=== PATIENT | male | born 2000 | race African-American/Black ===

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

== ENCOUNTER 2019-05-15 20:11 | Emergency (ER) | payer SELFPAY ==
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
[2019-05-15] MEDS ORDERED: LIDOCAINE 1% MPF 5 ML VIAL ONE (21:13)
[2019-05-15] MEDS ORDERED: BUPIVACAINE 0.5% PF 10 ML VIAL ONE (21:13)
[2019-05-15] MEDS ORDERED: TETANUS & DIPHTHERIA TOX,ADULT 0.5 ML VIAL ONE (21:14)
--- NOTE | 2019-05-15 22:24 | ER ---
Nurse's Notes [facility] Name: Bernarda Finn Age: 19 yrs Sex: Male : 2000 Arrival Date: 05/15/2019 Time: 20:12 Bed 24 Private MD: Diagnosis: Laceration without foreign body of finger without damage to nail-right middle Presentation: 05/14 20:39 Chief complaint: Patient states: "I cut middle finger on my right hand on some glass.". jd3 Coronavirus screen: The patient has NOT traveled to a country currently being monitored by the [facility] within the last 14 days. The patient has NOT had contact with any known and/or suspected case of coronavirus. Proceed with normal triage procedures. Ebola Screen: Patient negative for fever greater than or equal to 101.5 degrees Fahrenheit, and additional compatible Ebola Virus Disease symptoms. Initial Sepsis Screen: Does the patient meet any 2 criteria? No. Patient's initial sepsis screen is negative. Does the patient have a suspected source of infection? No. Patient's initial sepsis screen is negative. Risk Assessment: Do you want to hurt yourself or someone else? Patient reports no desire to harm self or others. 20:39 Method Of Arrival: Ambulatory jd3 20:39 Acuity: ROCK 4 jd3 21:00 Onset of symptoms was May 15, 2019. ll1 Triage Assessment: 20:59 General: Appears in no apparent distress. Behavior is calm, cooperative. ll1 Historical: - Allergies: 20:41 No Known Allergies; jd3 - Home Meds: 20:41 None [Active]; jd3 - PMHx: 20:41 None; jd3 - PSHx: 20:41 None; jd3 - Immunization history:: Adult Immunizations up to date, Last tetanus immunization: < 10 years ago. - Social history:: Smoking status: . Screenin:59 Abuse screen: Denies threats or abuse. Nutritional screening: No deficits noted. ll1 Tuberculosis screening: No symptoms or risk factors identified. Fall Risk None identified. Total Bravo Fall Scale indicates No Risk (0-24 pts). Assessment: 21:00 General: Appears in no apparent distress. Behavior is calm, cooperative. Pain: ll1 Complains of pain in palmar aspect of proximal phalanx of right middle finger Pain currently is 4 out of 10 on a pain scale. Quality of pain is described as aching. Neuro: No deficits noted. Cardiovascular: No deficits noted. Respiratory: No deficits noted. Derm: laceration to right hand 3rd digit. Bleeding controlled. 22:47 Reassessment: Patient is alert, oriented x 3, equal unlabored respirations, skin bb warm/dry/pink. pt verbalized understanding of and agrees to plan of care discharge instructions given, suture line intact, splint in place to right middle finger, bandage clean, dry and intact, pt ambulated with steady gait to exit accompanied by family. Vital Signs: 20:41 BP 134 / 76; Pulse 86; Resp 17 S; Temp 98.4(TE); Pulse Ox 99% on R/A; Weight 72.57 kg jd3 (R); Height 6 ft. 1 in. (185.42 cm) (R); Pain 0/10; 22:38 BP 130 / 95; Pulse 75; Resp 14 S; Temp 98.5; Pulse Ox 100% on R/A; bb 20:41 Body Mass Index 21.11 (72.57 kg, 185.42 cm) jd3 ED Course: 20:12 Patient arrived in ED. cl3 20:40 Triage completed. jd3 20:41 Arm band placed on. jd3 20:58 Dariela Lopez, SARAH is Primary Nurse. ll1 20:59 Patient has correct armband on for positive identification. Bed in low position. Call ll1 light in reach. Side rails up X 1. 21:03 Delfin Hightower PA is PHCP. cp 21:04 Miko Hu MD is Attending Physician. cp 22:40 Wound care: to laceration located on palmar aspect of proximal phalanx of right middle bb finger was cleaned with with normal saline, dressed with 4X4s, Kerlix, finger splint applied. 22:49 No provider procedures requiring assistance completed. Patient did not have IV access bb during this emergency room visit. 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 Exp: ll1 02/02/2021. Lot #: [id number]. } Route: IM; Site: right gluteus; 22:38 Follow up: Response: No adverse reaction bb 21:28 Drug: Lidocaine (1 %) 5 ml {Note: by C. Page.} Volume: 5 ml; Route: Infiltration; ll1 22:46 Follow up: Response: No adverse reaction ll1 21:28 Drug: Marcaine (0.5 %) 5 ml {Note: by C. Page.} Volume: 10 ml; Route: Infiltration; ll1 22:46 Follow up: Response: No adverse reaction ll1 Outcome: 22:24 Discharge ordered by . jairon 22:49 Discharged to home ambulatory, with family. bb 22:49 Condition: stable 22:49 Discharge instructions given to patient, Instructed on discharge instructions, follow up and referral plans. wound care, Demonstrated understanding of instructions, follow-up care, wound care. 22:49 Patient left the ED. bb Signatures: Myriam Goldman RN RN Delfin Elise PA PA cp Davies, Jonathon, RN RN Alvaro Obrien cl3 Dariela Lopez RN RN ll1
--- NOTE | 2019-05-15 22:24 | EDPHYS ---
Physician Documentation [facility] Name: Bernarda Finn Age: 19 yrs Sex: Male : 2000 Arrival Date: 05/15/2019 Time: 20:12 Bed 24 Private MD: ED Physician Miko Hu HPI: 05/14 21:10 This 19 yrs old Black Male presents to ER via Ambulatory with complaints of Laceration cp To Finger. 21:10 The patient or guardian reports a laceration. cp 21:10 Context: resulted from piece of broken glass. Onset: The symptoms/episode cp began/occurred today. Associated signs and symptoms: Pertinent negatives: cyanosis distally, numbness distally. Severity of symptoms: in the emergency department the symptoms are unchanged, despite home interventions. 21:10 The complaints affect the ulna side right middle finger. cp Historical: - Allergies: 20:41 No Known Allergies; jd3 - Home Meds: 20:41 None [Active]; jd3 - PMHx: 20:41 None; jd3 - PSHx: 20:41 None; jd3 - Immunization history:: Adult Immunizations up to date, Last tetanus immunization: < 10 years ago. - Social history:: Smoking status: . ROS: 21:15 Constitutional: Negative for body aches, chills, fever, poor PO intake. cp 21:15 Eyes: Negative for injury, pain, redness, and discharge. cp 21:15 ENT: Negative for drainage from ear(s), ear pain, sore throat, difficulty swallowing, difficulty handling secretions. 21:15 Cardiovascular: Negative for chest pain. 21:15 Respiratory: Negative for cough, wheezing. 21:15 MS/extremity: Positive for laceration, of the ulna side right middle finger, Negative for decreased range of motion, paresthesias. 21:15 All other systems are negative. Exam: 21:25 Constitutional: The patient appears in no acute distress, alert, awake, non-toxic, well cp developed, well nourished. 21:25 Musculoskeletal/extremity: Extremities: grossly normal except: noted in the ulna side cp right middle finger: laceration, There is no evidence of decreased ROM, ROM: full active range of motion, in the right middle finger, Perfusion: the extremity is normally perfused throughout, Sensation intact. Tendon exam: specific tendon testing normal through active and passive range of motion Vital Signs: 20:41 BP 134 / 76; Pulse 86; Resp 17 S; Temp 98.4(TE); Pulse Ox 99% on R/A; Weight 72.57 kg jd3 (R); Height 6 ft. 1 in. (185.42 cm) (R); Pain 0/10; 22:38 BP 130 / 95; Pulse 75; Resp 14 S; Temp 98.5; Pulse Ox 100% on R/A; bb 20:41 Body Mass Index 21.11 (72.57 kg, 185.42 cm) jd3 Laceration: 22:21 Wound Repair of 3cm ( 1.2in ) subcutaneous laceration to ulna side right middle finger. cp Linear shaped.. Distal neuro/vascular/tendon intact. Anesthesia: Digital block administered with 5 mls of Lido/Marcaine. Wound prep: Moderate cleansing by nurse, Wound irrigation with saline by me. Skin closed with 5 4-0 Prolene using simple sutures and sterile technique. Dressed with Bacitracin, non-adherent dressing. Patient tolerated well. MDM: 21:04 Patient medically screened. cp 21:20 Differential diagnosis: open fracture, closed fracture, tendon laceration, simple cp laceration. 22:23 Data reviewed: vital signs, nurses notes, and as a result, I will discharge patient. cp 22:23 Counseling: I had a detailed discussion with the patient and/or guardian regarding: the cp historical points, exam findings, and any diagnostic results supporting the discharge/admit diagnosis, to return to the emergency department if symptoms worsen or persist or if there are any questions or concerns that arise at home. Response to treatment: the patient's symptoms have markedly improved after treatment, and as a result, I will discharge patient. 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 Exp: ll1 02/02/2021. Lot #: [id number]. } Route: IM; Site: right gluteus; 22:38 Follow up: Response: No adverse reaction bb 21:28 Drug: Lidocaine (1 %) 5 ml {Note: by C. Page.} Volume: 5 ml; Route: Infiltration; ll1 22:46 Follow up: Response: No adverse reaction ll1 21:28 Drug: Marcaine (0.5 %) 5 ml {Note: by C. Page.} Volume: 10 ml; Route: Infiltration; ll1 22:46 Follow up: Response: No adverse reaction ll1 Disposition: 22:30 Chart complete. cp 05/15 07:02 Co-signature as Attending Physician, Miko Hu MD I agree with the assessment and tw4 plan of care. Disposition: 05/15/19 22:24 Discharged to Home. Impression: Laceration without foreign body of finger without damage to nail - right middle. - Condition is Stable. - Discharge Instructions: Laceration Care, Adult. - Work release form, Family Work Release, Medication Reconciliation Form, Thank You Letter, Antibiotic Education, Prescription Opioid Use form. - Follow up: Private Physician; When: 10 - 14 days; Reason: Staple/Suture removal. - Problem is new. - Symptoms have improved. Signatures: Myriam Goldman RN RN bb Delfin Hightower PA PA cp Davies, Jonathon RN SARAH jMiko Tanner MD MD tw4 Dariela Lopez RN RN ll1 Corrections: (The following items were deleted from the chart) 05/14 22:21 21:10 The complaints affect the right fourth finger, cp cp 22:49 22:24 05/15/2019 22:24 Discharged to Home. Impression: Laceration without foreign body bb of finger without damage to nail - right middle. Condition is Stable. Forms are Medication Reconciliation Form, Thank You Letter, Antibiotic Education, Prescription Opioid Use. Follow up: Private Physician; When: 10 - 14 days; Reason: Staple/Suture removal. Problem is new. Symptoms have improved. cp
[2019-05-15 23:05] VITALS: BP 130/95; TEMP 98.5; O2SAT 100
== END 2019-05-15 22:49 | disposition home or self-care (01) ==
LOC: ER 20:11
PROC: 0JQJ0ZZ Repair Right Hand Subcutaneous Tissue and Fascia, Open Approach (ICD-10-PCS; principal; 2019-05-15)
DX: S61.212A Laceration without foreign body of right middle finger without damage to nail, initial encounter (principal); W25.XXXA Contact with sharp glass, initial encounter; Y93.9 Activity, unspecified; Y92.9 Unspecified place or not applicable; Z23 Encounter for immunization
CPT/HCPCS: 90471; 90714; 99283

== ENCOUNTER 2019-05-25 | Emergency (ER) | payer SELFPAY ==
--- NOTE | 2019-05-25 11:04 | EDPHYS ---
Physician Documentation [facility] Name: Bernarda Finn Age: 19 yrs Sex: Male : 2000 Arrival Date: 05/25/2019 Time: 10:35 Bed 14 Private MD: ED Physician Rajan Katz HPI: 05/24 10:53 This 19 yrs old Black Male presents to ER via Ambulatory with complaints of Suture cp Removal. 10:53 The patient has sutures on the right middle finger. cp 10:54 Previous treatment: The patient was initially treated 10 day(s) ago, the care was cp rendered at [facility], Treatment type: The patient's original treatment included sutures. Historical: - Allergies: 10:46 No Known Allergies; ph - Home Meds: 10:46 None [Active]; ph - PMHx: 10:46 None; ph - Immunization history:: Adult Immunizations up to date. - Social history:: Smoking status: Patient denies any tobacco usage or history of. ROS: 10:56 Constitutional: Negative for fever. cp 10:56 Skin: Positive for laceration(s), of the right middle finger, Negative for cellulitis. 10:56 Neuro: Negative for numbness. 10:56 All other systems are negative. Exam: 10:56 Head/Face: Normocephalic, atraumatic. cp 10:56 Constitutional: The patient appears in no acute distress, alert, awake, non-toxic, well developed, well nourished. 10:56 Cardiovascular: Rate: normal. 10:56 Respiratory: the patient does not display signs of respiratory distress, Respirations: normal. 10:56 Skin: cellulitis, is not appreciated, Wound recheck: Suture laceration closure: no drainage, no erythema, no swelling, mild dehiscence. Vital Signs: 10:43 BP 129 / 81; Pulse 75; Resp 18; Temp 98.6; Pulse Ox 99% on R/A; Weight 72.57 kg; Height ph 6 ft. 1 in. (185.42 cm); Pain 0/10; 10:43 Body Mass Index 21.11 (72.57 kg, 185.42 cm) ph MDM: 10:42 Patient medically screened. cp 10:59 ED course: VSS. Wound appears to be healing well with no signs of infection, mild cp dehiscence noted. Noted [address], 2 sutures removed by me today and will leave [address] for next 4-5 days and apply splint to extremity. 11:03 Data reviewed: vital signs, nurses notes, and as a result, I will discharge patient. cp 11:03 Counseling: I had a detailed discussion with the patient and/or guardian regarding: the cp historical points, exam findings, and any diagnostic results supporting the discharge/admit diagnosis, to return to the emergency department if symptoms worsen or persist or if there are any questions or concerns that arise at home. Administered Medications: No medications were administered Disposition: 11:15 Chart complete. cp 17:16 Co-signature as Attending Physician, Rajan Ktaz MD Did not see or evaluate patient. ps1 Signature for administrative purposes. . Disposition: 05/25/19 11:03 Discharged to Home. Impression: Encounter for attention to dressings, sutures and drains. - Condition is Stable. - Discharge Instructions: Wound Check, Form - Return To Work. - Medication Reconciliation Form, Thank You Letter, Antibiotic Education, Prescription Opioid Use, Work release form form. - Follow up: Private Physician; When: 4 Days; Reason: Staple/Suture removal. - Problem is new. - Symptoms have improved. Signatures: Jyothi Hernandes RN RN ph Delfin Hightower PA PA cp Sebastian Barnett, SARAH RN Rajan Arvizu MD MD ps1 Corrections: (The following items were deleted from the chart) 11:14 11:03 05/25/2019 11:03 Discharged to Home. Impression: Encounter for attention to bp dressings, sutures and drains. Condition is Stable. Forms are Medication Reconciliation Form, Thank You Letter, Antibiotic Education, Prescription Opioid Use. Follow up: Private Physician; When: 4 Days; Reason: Staple/Suture removal. Problem is new. Symptoms have improved. cp
--- NOTE | 2019-05-25 11:04 | ER ---
Nurse's Notes [facility] Name: Bernarda Finn Age: 19 yrs Sex: Male : 2000 Arrival Date: 05/25/2019 Time: 10:35 Bed 14 Private MD: Diagnosis: Encounter for attention to dressings, sutures and drains Presentation: 05/24 10:43 Chief complaint: Patient states: Had sutures placed to R middle finger approx 10 days ph ago and here for removal, denies redness, swelling, or signs of infection. Coronavirus screen: The patient has NOT traveled to a country currently being monitored by the [facility] within the last 14 days. The patient has NOT had contact with any known and/or suspected case of coronavirus. Ebola Screen: No symptoms or risks identified at this time. Initial Sepsis Screen: Does the patient meet any 2 criteria? No. Patient's initial sepsis screen is negative. Does the patient have a suspected source of infection? No. Patient's initial sepsis screen is negative. Risk Assessment: Do you want to hurt yourself or someone else? Patient reports no desire to harm self or others. 10:43 Method Of Arrival: Ambulatory ph 10:43 Acuity: ROCK 5 ph Triage Assessment: 10:45 General: Appears in no apparent distress. comfortable, Behavior is calm, cooperative, bp appropriate for age. Pain: Denies pain. EENT: No deficits noted. Neuro: No deficits noted. Cardiovascular: No deficits noted. Respiratory: No deficits noted. GI: No signs and/or symptoms were reported involving the gastrointestinal system. : No signs and/or symptoms were reported regarding the genitourinary system. Derm: No deficits noted. Musculoskeletal: No deficits noted. Injury Description: HEALED LACERATION WITH SUTURES. Historical: - Allergies: 10:46 No Known Allergies; ph - Home Meds: 10:46 None [Active]; ph - PMHx: 10:46 None; ph - Immunization history:: Adult Immunizations up to date. - Social history:: Smoking status: Patient denies any tobacco usage or history of. Screenin:47 Abuse screen: Denies threats or abuse. Denies injuries from another. Nutritional ph screening: No deficits noted. Tuberculosis screening: No symptoms or risk factors identified. Fall Risk None identified. Assessment: 10:45 General: SEE TRIAGE NOTE. bp 11:12 Reassessment: PT D/C HOME AMBULATORY WITH FAMILY, DX WITH SUTURE REMOVAL. bp Vital Signs: 10:43 BP 129 / 81; Pulse 75; Resp 18; Temp 98.6; Pulse Ox 99% on R/A; Weight 72.57 kg; Height ph 6 ft. 1 in. (185.42 cm); Pain 0/10; 10:43 Body Mass Index 21.11 (72.57 kg, 185.42 cm) ph ED Course: 10:35 Patient arrived in ED. ag5 10:42 Delfin Hightower PA is PHCP. cp 10:42 Rajan Katz MD is Attending Physician. cp 10:43 Jyothi Hernandes, RN is Primary Nurse. ph 10:44 Triage completed. ph 10:47 Patient has correct armband on for positive identification. Bed in low position. Call ph light in reach. Pulse ox on. NIBP on. 10:47 Arm band placed on Patient placed in an exam room, on a stretcher. ph 10:54 Sebastian Barnett, SARAH is Primary Nurse. bp 10:55 No provider procedures requiring assistance completed. Patient did not have IV access bp during this emergency room visit. Removal of Removed sutures from right middle finger Suture site is well healed Patient tolerated well. Administered Medications: No medications were administered Outcome: 11:03 Discharge ordered by MD. cp 11:12 Discharged to home ambulatory, with family. bp 11:12 Condition: stable 11:12 Discharge instructions given to patient, Instructed on discharge instructions, follow up and referral plans. wound care, Demonstrated understanding of instructions, follow-up care, wound care. 11:14 Patient left the ED. bp Signatures: Jyothi Hernandes, RN RN ph Delfin Hightower PA PA cp Sebastian Barnett, RN RN bp Bessie Huang ag5
== END 2019-05-25 11:14 | disposition home or self-care (01) ==
DX: Z48.02 Encounter for removal of sutures (principal)
CPT/HCPCS: 99283

== ENCOUNTER 2019-05-28 11:54 | Emergency (ER) | payer SELFPAY ==
--- NOTE | 2019-05-28 12:26 | EDPHYS ---
Physician Documentation [facility] Name: Bernarda Finn Age: 19 yrs Sex: Male : 2000 Arrival Date: 05/28/2019 Time: 11:57 Bed 24 Private MD: ED Physician Cheo Haywood HPI: 05/27 12:23 This 19 yrs old Black Male presents to ER via Ambulatory with complaints of Suture snw Removal. 12:23 The patient has sutures on the dorsal aspect of proximal phalanx of right ring finger. snw Previous treatment: The patient was initially treated 14 day(s) ago, Previous recheck: was rechecked on May 25, 2019. Sutures/gloria progress: The patient has no c/o's. The wound is well-healing with no redness, swelling, discharge, or dehiscence reported. The patient has not experienced similar symptoms in the past. on 05/25/19, pt came for suture removal, two sutures were removed and pt told to return today. Healed laceration with [address] Historical: - Allergies: 12:08 No Known Allergies; ca1 - Home Meds: 12:08 None [Active]; ca1 - PMHx: 12:08 None; ca1 - PSHx: 12:08 None; ca1 - Immunization history:: Adult Immunizations up to date, Flu vaccine is up to date. - Social history:: Smoking status: Patient denies any tobacco usage or history of. ROS: 12:21 Constitutional: Negative for fever, chills, and weight loss, Eyes: Negative for injury, snw pain, redness, and discharge, ENT: Negative for injury, pain, and discharge, Neck: Negative for injury, pain, and swelling, Cardiovascular: Negative for chest pain, palpitations, and edema, Respiratory: Negative for shortness of breath, cough, wheezing, and pleuritic chest pain, Abdomen/GI: Negative for abdominal pain, nausea, vomiting, diarrhea, and constipation, Back: Negative for injury and pain, : Negative for injury, bleeding, discharge, and swelling, MS/Extremity: Negative for injury and deformity, Neuro: Negative for headache, weakness, numbness, tingling, and seizure, Psych: Negative for depression, anxiety, suicide ideation, homicidal ideation, and hallucinations. 12:21 Skin: Positive for healed laceration to ring finger, need sutures removed. Exam: 12:21 Constitutional: This is a well developed, well nourished patient who is awake, alert, snw and in no acute distress. Head/Face: Normocephalic, atraumatic. Eyes: Pupils equal round and reactive to light, extra-ocular motions intact. Lids and lashes normal. Conjunctiva and sclera are non-icteric and not injected. Cornea within normal limits. Periorbital areas with no swelling, redness, or edema. ENT: Nares patent. No nasal discharge, no septal abnormalities noted. Tympanic membranes are normal and external auditory canals are clear. Oropharynx with no redness, swelling, or masses, exudates, or evidence of obstruction, uvula midline. Mucous membranes moist. Neck: Trachea midline, no thyromegaly or masses palpated, and no cervical lymphadenopathy. Supple, full range of motion without nuchal rigidity, or vertebral point tenderness. No Meningismus. Chest/axilla: Normal chest wall appearance and motion. Nontender with no deformity. No lesions are appreciated. Cardiovascular: Regular rate and rhythm with a normal S1 and S2. No gallops, murmurs, or rubs. Normal PMI, no JVD. No pulse deficits. Respiratory: Lungs have equal breath sounds bilaterally, clear to auscultation and percussion. No rales, rhonchi or wheezes noted. No increased work of breathing, no retractions or nasal flaring. Abdomen/GI: Soft, non-tender, with normal bowel sounds. No distension or tympany. No guarding or rebound. No evidence of tenderness throughout. Back: No spinal tenderness. No costovertebral tenderness. Full range of motion. Skin: Warm, dry with normal turgor. Normal color with no rashes, no lesions, and no evidence of cellulitis. MS/ Extremity: Pulses equal, no cyanosis. Neurovascular intact. Full, normal range of motion. Neuro: Awake and alert, GCS 15, oriented to person, place, time, and situation. Cranial nerves II-XII grossly intact. Motor strength 5/5 in all extremities. Sensory grossly intact. Cerebellar exam normal. Normal gait. Psych: Awake, alert, with orientation to person, place and time. Behavior, mood, and affect are within normal limits. Vital Signs: 12:06 BP 142 / 77; Pulse 76; Resp 16 S; Temp 97.5(TE); Pulse Ox 100% on R/A; Weight 72.57 kg ca1 (R); Height 6 ft. 1 in. (185.42 cm) (R); 12:06 Body Mass Index 21.11 (72.57 kg, 185.42 cm) ca1 MDM: 12:09 Patient medically screened. snw 12:26 Data reviewed: vital signs, nurses notes. Counseling: I had a detailed discussion with snw the patient and/or guardian regarding: the historical points, exam findings, and any diagnostic results supporting the discharge/admit diagnosis, to return to the emergency department if symptoms worsen or persist or if there are any questions or concerns that arise at home. Response to treatment: the patient's symptoms have markedly improved after treatment. Administered Medications: No medications were administered Disposition: 12:46 Co-signature as Attending Physician, Cheo Haywood MD. rn Disposition: 05/28/19 12:26 Discharged to Home. Impression: Encounter for screening, unspecified. - Condition is Stable. - Discharge Instructions: Suture Removal, Care After, Wound Care. - Medication Reconciliation Form, Thank You Letter, Antibiotic Education, Prescription Opioid Use form. - Follow up: Emergency Department; When: As needed; Reason: Worsening of condition. Follow up: Private Physician; When: 2 - 3 days; Reason: Recheck today's complaints, Continuance of care, Re-evaluation by your physician. Signatures: Indigo Rodriguez, FINANCE ADMINISTRATOR-C FINANCE ADMINISTRATOR-Csnw Cheo Haywood MD MD rn [facility] center[facility]andon Nishi Coffey, RN RN ca1 Corrections: (The following items were deleted from the chart) 12:35 12:26 05/28/2019 12:26 Discharged to Home. Impression: Encounter for screening, wh unspecified. Condition is Stable. Forms are Medication Reconciliation Form, Thank You Letter, Antibiotic Education, Prescription Opioid Use. Follow up: Emergency Department; When: As needed; Reason: Worsening of condition. Follow up: Private Physician; When: 2 - 3 days; Reason: Recheck today's complaints, Continuance of care, Re-evaluation by your physician. snw
--- NOTE | 2019-05-28 12:26 | ER ---
Nurse's Notes [facility] Name: Bernarda Finn Age: 19 yrs Sex: Male : 2000 Arrival Date: 05/28/2019 Time: 11:57 Bed 24 Private MD: Diagnosis: Encounter for screening, unspecified Presentation: 05/27 12:06 Chief complaint: Patient states: Came for suture removal. Suture done 2 weeks ago on R ca1 middle finger. Coronavirus screen: Patient denies fever greater than 100.4F, cough, shortness of breath, or difficulty breathing. Proceed with normal triage process. Ebola Screen: Patient negative for fever greater than or equal to 101.5 degrees Fahrenheit, and additional compatible Ebola Virus Disease symptoms Patient denies exposure to infectious person. Patient denies travel to an Ebola-affected area in the 21 days before illness onset. No symptoms or risks identified at this time. Initial Sepsis Screen: Does the patient meet any 2 criteria? No. Patient's initial sepsis screen is negative. Does the patient have a suspected source of infection? No. Patient's initial sepsis screen is negative. Risk Assessment: Do you want to hurt yourself or someone else? Patient reports no desire to harm self or others. Onset of symptoms was May 28, 2019. 12:06 Method Of Arrival: Ambulatory ca1 12:06 Acuity: ROCK 5 ca1 Historical: - Allergies: 12:08 No Known Allergies; ca1 - Home Meds: 12:08 None [Active]; ca1 - PMHx: 12:08 None; ca1 - PSHx: 12:08 None; ca1 - Immunization history:: Adult Immunizations up to date, Flu vaccine is up to date. - Social history:: Smoking status: Patient denies any tobacco usage or history of. Screenin:33 Abuse screen: Denies threats or abuse. Denies injuries from another. Nutritional wh screening:. Tuberculosis screening: No symptoms or risk factors identified. Fall Risk None identified. Assessment: 12:31 General: Appears in no apparent distress. Behavior is calm, cooperative, appropriate wh for age. Pain: Denies pain. Neuro: Level of Consciousness is awake, alert, obeys commands, Oriented to person, place, time, situation, Appropriate for age. Cardiovascular: Capillary refill < 3 seconds. Respiratory: Airway is patent Respiratory effort is even, unlabored, Respiratory pattern is regular, symmetrical. GI: Abdomen is flat, non-distended. : No signs and/or symptoms were reported regarding the genitourinary system. EENT: No signs and/or symptoms were reported regarding the EENT system. Derm: Skin is intact, is healthy with good turgor, Skin is pink, warm \T\ dry. normal. Musculoskeletal: Circulation, motion, and sensation intact. Vital Signs: 12:06 BP 142 / 77; Pulse 76; Resp 16 S; Temp 97.5(TE); Pulse Ox 100% on R/A; Weight 72.57 kg ca1 (R); Height 6 ft. 1 in. (185.42 cm) (R); 12:06 Body Mass Index 21.11 (72.57 kg, 185.42 cm) ca1 ED Course: 11:57 Patient arrived in ED. am2 12:08 Triage completed. ca1 12:08 Arm band placed on right wrist. [facility] 12:09 Indigo Rodriguez FNP-C is PHCP. snw 12:09 Cheo Haywood MD is Attending Physician. snw 12:10 Brandon Hung is Primary Nurse. 12:15 Patient has correct armband on for positive identification. Bed in low position. Call light in reach. Side rails up X 1. Pulse ox on. NIBP on. 12:15 Suture removal. Patient did not have IV access during this emergency room visit. Administered Medications: No medications were administered Outcome: 12:26 Discharge ordered by . sn 12:34 Discharged to home ambulatory. 12:34 Condition: stable 12:34 Discharge instructions given to patient, Instructed on discharge instructions, follow up and referral plans. wound care, Demonstrated understanding of instructions, follow-up care, wound care. 12:35 Patient left the ED. Signatures: Indigo Rodriguez FNP-C [employer]-Csnw Christin Espinoza am2 Brandon Hung Nishi Coffey RN RN ca1
[2019-05-28 12:39] VITALS: BP 142/77; TEMP 97.5; O2SAT 100
== END 2019-05-28 12:35 | disposition home or self-care (01) ==
LOC: ER 11:54
DX: Z48.02 Encounter for removal of sutures (principal)
CPT/HCPCS: 99283

== ENCOUNTER 2019-09-11 16:35 | Emergency (ER) | payer SELFPAY, OTHER ==
--- NOTE | 2019-09-11 19:02 | ER ---
Nurse's Notes [facility] Name: Bernarda Finn Age: 19 yrs Sex: Male : 2000 Arrival Date: 09/11/2019 Time: 16:38 Bed 28 Private MD: Diagnosis: Viral infection, unspecified Presentation: 09/10 17:16 Chief complaint: Patient states: Runny nose since yesterday. Family tested positive for ca1 COVID today and I was exposed to them. Coronavirus screen: Patient denies a cough. Patient denies shortness of breath or difficulty breathing. Patient denies measured and/or subjective temperature greater than 100.4F prior to today's visit. Patient denies travel on a cruise ship or to a country the [facility] currently lists as an affected area. Patient reports contact with known and/or suspected case of COVID-19. Surgical mask provided. Instructed to keep mask at all times and keep 6 feet physical distance from other patients/people in the lobby. Ebola Screen: Patient negative for fever greater than or equal to 101.5 degrees Fahrenheit, and additional compatible Ebola Virus Disease symptoms Patient denies exposure to infectious person. Patient denies travel to an Ebola-affected area in the 21 days before illness onset. No symptoms or risks identified at this time. Initial Sepsis Screen: Does the patient meet any 2 criteria? No. Patient's initial sepsis screen is negative. Does the patient have a suspected source of infection? No. Patient's initial sepsis screen is negative. Risk Assessment: Do you want to hurt yourself or someone else? Patient reports no desire to harm self or others. Onset of symptoms was September 11, 2019. 17:16 Method Of Arrival: Ambulatory ca1 17:16 Acuity: ROCK 4 ca1 Historical: - Allergies: 17:18 No Known Allergies; ca1 - Home Meds: 17:18 None [Active]; ca1 - PMHx: 17:18 None; ca1 - PSHx: 17:18 None; ca1 - Immunization history:: Adult Immunizations. - Social history:: Smoking status: Patient denies any tobacco usage or history of. Vital Signs: 17:16 BP 117 / 60; Pulse 76; Resp 15 S; Temp 98.5(TE); Pulse Ox 99% on R/A; Weight 74.84 kg ca1 (R); Height 6 ft. 1 in. (185.42 cm) (R); Pain 0/10; 17:16 Body Mass Index 21.77 (74.84 kg, 185.42 cm) ca1 ED Course: 16:38 Patient arrived in ED. mr 17:18 Triage completed. ca1 17:18 Arm band placed on right wrist. ca1 17:45 Strep swab sent to lab. jp3 18:07 Ladonna Wilson, SARAH is Primary Nurse. iw 18:12 Rigoberto Moulton PA is PHCP. jr8 18:12 Rajan Katz MD is Attending Physician. jr8 18:15 Bed in low position. Call light in reach. Verbal reassurance given. jp3 18:32 Throat Culture Sent. jp3 18:52 Pt swabbed for COVID-19. jp3 Administered Medications: No medications were administered Outcome: 19:01 Discharge ordered by . jr8 19:18 Patient left the ED. iw Addendum: 09/16/2019 10:55 Addendum: COVID-19 Result: Negative result given to RN to notify pt. Contacted by: sara Santiago RN. Notified pt of negative COVID 19 swab results. Pt advised that even with a negative test result they should remain in isolation until symptom free for 3 days without medication. Pt also advised to return to the ED for worsening symptoms. Signatures: Bety Santiago, RN RN dm5 Agatha Garcia Ladonna Wilson RN RN Rigoberto Moulton PA PA jr8 Eyad Lind jp3 Nishi Coffey RN RN ca1 Corrections: (The following items were deleted from the chart) 09/10 17:26 17:16 Chief complaint: Patient states: Runny nose since yesterday. Family tested ca1 positive today and was exposed to ca1
--- NOTE | 2019-09-11 19:02 | EDPHYS ---
Physician Documentation [facility] Name: Bernarda Finn Age: 19 yrs Sex: Male : 2000 Arrival Date: 09/11/2019 Time: 16:38 Bed 28 Private MD: ED Physician Rajan Katz HPI: 09/10 18:46 This 19 yrs old Black Male presents to ER via Ambulatory with complaints of Congestion, jr8 Runny Nose. 18:46 Onset: The symptoms/episode began/occurred gradually, 1 week(s) ago. Associated signs jr8 and symptoms: Pertinent positives: congestion, runny nose. The patient has not experienced similar symptoms in the past. The patient has not recently seen a physician. Patient stated that he has been exposed to multiple covid positive family members. No exhibiting s/s of covid. Historical: - Allergies: 17:18 No Known Allergies; ca1 - Home Meds: 17:18 None [Active]; ca1 - PMHx: 17:18 None; ca1 - PSHx: 17:18 None; ca1 - Immunization history:: Adult Immunizations. - Social history:: Smoking status: Patient denies any tobacco usage or history of. ROS: 18:59 Eyes: Negative for injury, pain, redness, and discharge, Neck: Negative for injury, jr8 pain, and swelling, Cardiovascular: Negative for chest pain, palpitations, and edema, Respiratory: Negative for shortness of breath, cough, wheezing, and pleuritic chest pain, Abdomen/GI: Negative for abdominal pain, nausea, vomiting, diarrhea, and constipation, Back: Negative for injury and pain, MS/Extremity: Negative for injury and deformity, Skin: Negative for injury, rash, and discoloration, Neuro: Negative for headache, weakness, numbness, tingling, and seizure. 18:59 ENT: Positive for sinus congestion. Exam: 18:59 Eyes: Pupils equal round and reactive to light, extra-ocular motions intact. Lids and jr8 lashes normal. Conjunctiva and sclera are non-icteric and not injected. Cornea within normal limits. Periorbital areas with no swelling, redness, or edema. ENT: Nares patent. No nasal discharge, no septal abnormalities noted. Tympanic membranes are normal and external auditory canals are clear. Oropharynx with no redness, swelling, or masses, exudates, or evidence of obstruction, uvula midline. Mucous membranes moist. Neck: Trachea midline, no thyromegaly or masses palpated, and no cervical lymphadenopathy. Supple, full range of motion without nuchal rigidity, or vertebral point tenderness. No Meningismus. Cardiovascular: Regular rate and rhythm with a normal S1 and S2. No gallops, murmurs, or rubs. Normal PMI, no JVD. No pulse deficits. Respiratory: Lungs have equal breath sounds bilaterally, clear to auscultation and percussion. No rales, rhonchi or wheezes noted. No increased work of breathing, no retractions or nasal flaring. Abdomen/GI: Soft, non-tender, with normal bowel sounds. No distension or tympany. No guarding or rebound. No evidence of tenderness throughout. Back: No spinal tenderness. No costovertebral tenderness. Full range of motion. Skin: Warm, dry with normal turgor. Normal color with no rashes, no lesions, and no evidence of cellulitis. MS/ Extremity: Pulses equal, no cyanosis. Neurovascular intact. Full, normal range of motion. Neuro: Awake and alert, GCS 15, oriented to person, place, time, and situation. Cranial nerves II-XII grossly intact. Motor strength 5/5 in all extremities. Sensory grossly intact. Cerebellar exam normal. Normal gait. Vital Signs: 17:16 BP 117 / 60; Pulse 76; Resp 15 S; Temp 98.5(TE); Pulse Ox 99% on R/A; Weight 74.84 kg ca1 (R); Height 6 ft. 1 in. (185.42 cm) (R); Pain 0/10; 17:16 Body Mass Index 21.77 (74.84 kg, 185.42 cm) ca1 MDM: 18:12 Patient medically screened. jr8 18:59 Data reviewed: vital signs, nurses notes, lab test result(s), and as a result, I will jr discharge patient. Data interpreted: Pulse oximetry: on room air is 99 %. Interpretation: normal. Counseling: I had a detailed discussion with the patient and/or guardian regarding: the historical points, exam findings, and any diagnostic results supporting the discharge/admit diagnosis, lab results, the need for outpatient follow up, a family practitioner, to return to the emergency department if symptoms worsen or persist or if there are any questions or concerns that arise at home. 09/10 17:40 Order name: Strep; Complete Time: 18:46 ca1 09/10 18:27 Order name: COVID-19 jr8 09/10 18:30 Order name: Throat Culture EDMS Administered Medications: No medications were administered Disposition: 09/11/19 19:01 Discharged to Home. Impression: Viral infection, unspecified. - Condition is Stable. - Discharge Instructions: Viral Respiratory Infection, COVID-19. - Medication Reconciliation Form, Thank You Letter, Antibiotic Education, Prescription Opioid Use form. - Follow up: Private Physician; When: As needed; Reason: Recheck today's complaints, Continuance of care, Re-evaluation by your physician. - Problem is new. - Symptoms have improved. Addendum: 09/13/2019 21:21 Co-signature as Attending Physician, Rajan Katz MD Did not see or evaluate patient. p s1 I was available in the ED for consultation. Signature for administrative purposes. . Signatures: Dispatcher [employer] EDWI Ladonna Wilson RN RN iw Rigoberto Moulton PA PA jr8 Rajan Katz MD MD ps1 Nishi Coffey RN RN ca1 Corrections: (The following items were deleted from the chart) 09/10 19:00 18:46 Patient stated that he has been exposed to multiple covid positive family members jr8 . jr8 19:18 19:01 09/11/2019 19:01 Discharged to Home. Impression: Viral infection, unspecified. iw Condition is Stable. Forms are Medication Reconciliation Form, Thank You Letter, Antibiotic Education, Prescription Opioid Use. Follow up: Private Physician; When: As needed; Reason: Recheck today's complaints, Continuance of care, Re-evaluation by your physician. Problem is new. Symptoms have improved. jr8
[2019-09-11 20:05] VITALS: BP 117/60; TEMP 98.5; O2SAT 99
== END 2019-09-11 19:18 | disposition home or self-care (01) ==
LOC: ER 16:35
DX: B34.9 Viral infection, unspecified (principal); Z20.828 Contact with and (suspected) exposure to other viral communicable diseases
CPT/HCPCS: 87070; 87081; 99282; U0002

== ENCOUNTER 2019-10-14 06:16 | Emergency (ER) | payer SELFPAY, OTHER ==
[2019-10-14] MEDS ORDERED: Ringers Lactate 1,000 ML IV ONE (07:26)
[2019-10-14] MEDS ORDERED: dexAMETHasone 10 MG/ML VIAL ONE (07:26)
[2019-10-14] MEDS ORDERED: CEFTRIAXONE/SWI 1gm 1 GM/10 ML SYR ONE (07:27)
[2019-10-14] MEDS ORDERED: CLINDAMYCIN 600MG/D5W 600 MG/50 ML BAG IV ONE (07:27)
[2019-10-14 07:37] LABS: Basophils % 0.3 % (0-1.3); Hematocrit 45.7 % (39.6-49.0); Lymphocytes % 4.9 % (15.3-44.8); MPV 9.6 fL (7.6-11.3)
[2019-10-14 07:55] LABS: Potassium 3.8 mmol/L (3.5-5.1)
--- NOTE | 2019-10-14 08:19 | RAD REPORT ---
EXAM DESCRIPTION: CT - Soft Tissue Neck W/Contr CLINICAL HISTORY: Pain;Sore throat;Swelling COMPARISON: No comparisons TECHNIQUE All CT scans are performed using dose optimization technique as appropriate and may includ e automated exposure control or mA/KV adjustment according to patient size. FINDINGS: Moderate tonsillar enlargement is seen affecting the lingual and palatine tonsils. Fluid c ollection is seen extending inferiorly from left palatine tonsil within the left parapharyngeal space measuring 3.8 x 1.6 x 10 mm (CC x AP x T). This may represent an early/developing parapharyngeal abs cess. No retropharyngeal fluid collection seen. No significant vascular abnormality. Moderate bilateral jugular chain lymph adenopathy is seen. IMPRESSION: Moderate tonsillar enlargement is present with evidence of a developing left parapharyng eal space abscess as described. Moderate bilateral cervical adenopathy is present, likely reactive.
[2019-10-14 08:24] LABS: Blood Morphology Comment NOT SEEN (NOT SEEN); Platelet Estimate ADEQ; Urine White Blood Cell Casts OK
--- NOTE | 2019-10-14 10:10 | EDPHYS ---
Physician Documentation [facility] Name: Bernarda Finn Age: 19 yrs Sex: Male : 2000 Arrival Date: 10/14/2019 Time: 06:46 Bed 6 Private MD: ED Physician Delfin Williamson HPI: 10/13 08:17 This 19 yrs old Black Male presents to ER via Ambulatory with complaints of Sore jr8 Throat, Neck Swelling, BLOOD IN SPUTUM. 08:17 Onset: The symptoms/episode began/occurred acutely, yesterday. Severity of symptoms: At jr8 their worst the symptoms were moderate, in the emergency department the symptoms are unchanged. Modifying factors: The symptoms are alleviated by nothing, the symptoms are aggravated by swallowing. Associated signs and symptoms: The patient has no apparent associated signs or symptoms. The patient has not experienced similar symptoms in the past. Pt c/o sore throat, difficulty swallowing, bilateral ear pain, and neck pain since yesterday. The pt states that the pain began abruptly, and that he has seen a "few streaks of blood" in his spit. He denies trauma. Reports difficulty with ROM of the neck. The pt denies fever, chest pain, sob, N/V/D, or any other symptoms. Historical: - Allergies: 06:55 No Known Allergies; sg - PMHx: 06:55 None; sg - PSHx: 06:55 None; sg - Immunization history:: Adult Immunizations up to date. - Social history:: Smoking status: Patient denies any tobacco usage or history of. ROS: 08:53 Eyes: Negative for injury, pain, redness, and discharge, Neck: Negative for injury, jr8 pain, and swelling, Cardiovascular: Negative for chest pain, palpitations, and edema, Respiratory: Negative for shortness of breath, cough, wheezing, and pleuritic chest pain, Abdomen/GI: Negative for abdominal pain, nausea, vomiting, diarrhea, and constipation, Back: Negative for injury and pain, MS/Extremity: Negative for injury and deformity, Skin: Negative for injury, rash, and discoloration, Neuro: Negative for headache, weakness, numbness, tingling, and seizure. 08:53 ENT: Positive for difficulty swallowing, sore throat. Exam: 08:53 Eyes: Pupils equal round and reactive to light, extra-ocular motions intact. Lids and jr8 lashes normal. Conjunctiva and sclera are non-icteric and not injected. Cornea within normal limits. Periorbital areas with no swelling, redness, or edema. Neck: Trachea midline, no thyromegaly or masses palpated, and no cervical lymphadenopathy. Supple, full range of motion without nuchal rigidity, or vertebral point tenderness. No Meningismus. Cardiovascular: Regular rate and rhythm with a normal S1 and S2. No gallops, murmurs, or rubs. Normal PMI, no JVD. No pulse deficits. Respiratory: Lungs have equal breath sounds bilaterally, clear to auscultation and percussion. No rales, rhonchi or wheezes noted. No increased work of breathing, no retractions or nasal flaring. Abdomen/GI: Soft, non-tender, with normal bowel sounds. No distension or tympany. No guarding or rebound. No evidence of tenderness throughout. Back: No spinal tenderness. No costovertebral tenderness. Full range of motion. Skin: Warm, dry with normal turgor. Normal color with no rashes, no lesions, and no evidence of cellulitis. MS/ Extremity: Pulses equal, no cyanosis. Neurovascular intact. Full, normal range of motion. Neuro: Awake and alert, GCS 15, oriented to person, place, time, and situation. Cranial nerves II-XII grossly intact. Motor strength 5/5 in all extremities. Sensory grossly intact. Cerebellar exam normal. Normal gait. 08:53 ENT: TM's: erythema, that is mild, bilaterally, Nose: is normal, Mouth: Lips: moist, Oral mucosa: pink and intact, moist, Gums: pink, Tongue: is normal, Posterior pharynx: Airway: patent, Tonsils: bilaterally enlarged, with erythema, with exudate, Uvula: midline, erythema, swelling, is not appreciated, erythema, that is moderate, peritonsillar mass, is not appreciated, pooling of secretions, is not appreciated, Voice: is muffled. Vital Signs: 06:53 BP 132 / 80; Pulse 101; Resp 18; Temp 99.0; Pulse Ox 100% on R/A; Weight 73.48 kg; Pain sg 10/10; 07:55 BP 125 / 79; Pulse 105; Resp 18; Pulse Ox 98% on R/A; jr10 08:31 BP 128 / 98; Pulse 116; Resp 18; Temp 99.4; Pulse Ox 98% ; bp 10:00 BP 114 / 91; Pulse 104; Resp 20; Temp 99.0; Pulse Ox 97% on R/A; jr10 MDM: 06:50 Patient medically screened. 8 08:53 Data reviewed: vital signs, nurses notes, lab test result(s), radiologic studies, CT jr8 scan. Data interpreted: Pulse oximetry: on room air is 98 %. Interpretation: normal. Counseling: I had a detailed discussion with the patient and/or guardian regarding: the historical points, exam findings, and any diagnostic results supporting the discharge/admit diagnosis, lab results, radiology results, the need for outpatient follow up, an ENT specialist, to return to the emergency department if symptoms worsen or persist or if there are any questions or concerns that arise at home. ED course: Patient able to tolerate fluids. Feeling better. Pain decreased. Non toxic in appearance. VS normalizing. Patient wants to go home. Talked to Dr. Myles VALDEZ who agrees with plan and based on VS and CT believes he can f/u with her in out patient office first thing tomorrow morning. Patient given IV Abx her and will be sent home on those as well. Also discussed with patient his renal function and will have him f/u with nephrology as subsequent finding. Patient knows to come back immediately if he feels worse, has throat tightening, or trouble breathing. . 10/13 07:07 Order name: Strep 10/13 07:07 Order name: [place] Screen Profile 10/13 07:07 Order name: CBC with Diff 10/13 07:07 Order name: Basic Metabolic Panel 10/13 07:43 Order name: CBC with Automated Diff; Complete Time: 08:35 EDMS 10/13 07:55 Order name: Basic Metabolic Panel; Complete Time: 07:55 EDMS 10/13 07:08 Order name: CT Soft Tissue Neck W/contr 10/13 08:19 Order name: CT; Complete Time: 08:21 EDMS 10/13 08:24 Order name: CBC Smear Scan; Complete Time: 08:35 EDMS 10/13 08:35 Order name: Group A Streptococcus Rapid Sc; Complete Time: 08:40 EDMS 10/13 08:49 Order name: [place] Screen; Complete Time: 08:52 EDND 10/13 07:07 Order name: IV; Complete Time: 07:30 jr8 Administered Medications: 07:40 Drug: Decadron - Dexamethasone 10 mg Route: IVP; Site: right antecubital; jr10 10:05 Follow up: Response: No adverse reaction jr10 07:42 Drug: Rocephin 1 grams Route: IV; Rate: calculated rate; Site: right antecubital; jr10 10:06 Follow up: Response: No adverse reaction; IV Status: Completed infusion jr10 07:46 Drug: Ringers - Lactated Ringers Solution 1000 ml Route: IV; Rate: bolus; Site: right jr10 antecubital; 07:46 Drug: Clindamycin 600 mg Route: IVPB; Infused Over: 30 mins; Site: right antecubital; jr10 08:20 Follow up: Response: No adverse reaction; IV Status: Completed infusion jr10 Disposition: 10/14/19 10:09 Discharged to Home. Impression: Streptococcal tonsillitis, Parapharyngeal Abscess. - Condition is Stable. - Discharge Instructions: Strep Throat. - Prescriptions for Augmentin 875- 125 mg Oral Tablet - take 1 tablet by ORAL route every 12 hours for 10 days; 20 tablet. Clindamycin HCl 300 mg Oral Capsule - take 1 capsule by ORAL route every 6 hours for 10 days; 40 capsule. Prednisone 20 mg Oral Tablet - take 2 tablet by ORAL route once daily for 5 days; 10 tablet. - Medication Reconciliation Form, Thank You Letter, Antibiotic Education, Prescription Opioid Use form. - Follow up: Candelaria Bueno MD; When: Tomorrow; Reason: Recheck today's complaints, Continuance of care, Re-evaluation by your physician. - Problem is new. - Symptoms have improved. Addendum: 10/15/2019 11:02 Co-signature as Attending Physician, Delfin Williamson MD I agree with the assessment and c crowder plan of care. Signatures: Dispatcher [employer] [facility] Ankit Mendoza, RN Delfin Fuentes MD MD cha Roszak, Josh, PA PA jr8 Obdulia Garcia RN RN jr10 Corrections: (The following items were deleted from the chart) 10/13 10:19 10:10/14/2019 10:09 Discharged to Home. Impression: Streptococcal tonsillitis; jr8 Peritonsillar abscess. Condition is Stable. Forms are Medication Reconciliation Form, Thank You Letter, Antibiotic Education, Prescription Opioid Use. Follow up: Candelaria Bueno; When: Tomorrow; Reason: Recheck today's complaints, Continuance of care, Re-evaluation by your physician. Problem is new. Symptoms have improved. jr8 10:22 08:53 ED course: Patient able to tolerate fluids. Feeling better. Pain decreased. Non jr8 toxic in appearance. VS normalizing. Talked to Dr. Bueno ENT who agrees with plan and based on VS and CT believes he can f/u with her in out patient office first thing tomorrow morning. Patient given IV Abx her and will be sent home on those as well. Also discussed with patient his renal function and will have him f/u with nephrology as subsequent finding . jr8 10:40 10:19 10/14/2019 10:09 Discharged to Home. Impression: Streptococcal tonsillitis; jr10 Parapharyngeal Abscess. Condition is Stable. Forms are Medication Reconciliation Form, Thank You Letter, Antibiotic Education, Prescription Opioid Use. Follow up: Candelaria Bueno; When: Tomorrow; Reason: Recheck today's complaints, Continuance of care, Re-evaluation by your physician. Problem is new. Symptoms have improved. jr8
--- NOTE | 2019-10-14 10:10 | ER ---
Nurse's Notes [facility] Name: Bernarda Finn Age: 19 yrs Sex: Male : 2000 Arrival Date: 10/14/2019 Time: 06:46 Bed 6 Private MD: Diagnosis: Streptococcal tonsillitis;Parapharyngeal Abscess Presentation: 10/13 06:53 Chief complaint: Patient states: using pen and paper, writes " my throat is very sg painful, hurts to swallow, feels swollen, and i have blood in my spit.". Coronavirus screen: Client denies travel out of the [place] in the last 14 days. Ebola Screen: Patient negative for fever greater than or equal to 101.5 degrees Fahrenheit, and additional compatible Ebola Virus Disease symptoms Patient denies exposure to infectious person. Patient denies travel to an Ebola-affected area in the 21 days before illness onset. No symptoms or risks identified at this time. Initial Sepsis Screen: Does the patient meet any 2 criteria? No. Patient's initial sepsis screen is negative. Does the patient have a suspected source of infection? No. Patient's initial sepsis screen is negative. Risk Assessment: Do you want to hurt yourself or someone else? Patient reports no desire to harm self or others. Onset of symptoms was October 14, 2019. Care prior to arrival: None. Transition of care: patient was not received from another setting of care. 06:53 Method Of Arrival: Ambulatory 06:53 Acuity: ROCK 3 sg Historical: - Allergies: 06:55 No Known Allergies; sg - PMHx: 06:55 None; sg - PSHx: 06:55 None; sg - Immunization history:: Adult Immunizations up to date. - Social history:: Smoking status: Patient denies any tobacco usage or history of. Screenin:30 Abuse screen: Denies threats or abuse. Denies injuries from another. Nutritional jr10 screening: No deficits noted. Tuberculosis screening: No symptoms or risk factors identified. Fall Risk None identified. Assessment: 07:30 General: Appears uncomfortable, Behavior is calm, cooperative, appropriate for age. jr10 Pain: Complains of pain in throat Pain currently is 10 out of 10 on a pain scale. Pain began 1 day ago. Neuro: No deficits noted. Cardiovascular: No deficits noted. Respiratory: No deficits noted. Airway is patent Respiratory effort is even, unlabored, Respiratory pattern is regular, symmetrical, Breath sounds are clear bilaterally. GI: No deficits noted. : No deficits noted. EENT: Throat is reddened has patchy exudate has enlarged tonsils bilaterally pt reports swallowing complaints. Derm: No deficits noted. Musculoskeletal: No deficits noted. Vital Signs: 06:53 BP 132 / 80; Pulse 101; Resp 18; Temp 99.0; Pulse Ox 100% on R/A; Weight 73.48 kg; Pain sg 10/10; 07:55 BP 125 / 79; Pulse 105; Resp 18; Pulse Ox 98% on R/A; jr10 08:31 BP 128 / 98; Pulse 116; Resp 18; Temp 99.4; Pulse Ox 98% ; bp 10:00 BP 114 / 91; Pulse 104; Resp 20; Temp 99.0; Pulse Ox 97% on R/A; jr10 ED Course: 06:46 Patient arrived in ED. fj1 06:50 Rigoberto Moulton PA is PHCP. jr8 06:50 Delfin Williamson MD is Attending Physician. jr8 06:53 Arm band placed on. sg 06:54 Triage completed. sg 07:11 Obdulia Garcia, RN is Primary Nurse. jr10 07:24 Initial lab(s) drawn, Strep swab sent to lab. Inserted saline lock: 20 gauge in right kj1 antecubital area, using aseptic technique. Blood collected. 07:30 Patient has correct armband on for positive identification. Bed in low position. Call jr10 light in reach. Side rails up X2. Pulse ox on. NIBP on. 07:30 Basic Metabolic Panel Sent. kj1 07:30 CBC with Diff Sent. kj1 07:30 Blanco Screen Profile Sent. kj1 07:30 Strep Sent. kj1 08:05 CT completed. Patient tolerated procedure well. Patient moved back from [place]. bq 10:09 Candelaria Bueno MD is Referral Physician. jr8 10:40 No provider procedures requiring assistance completed. IV discontinued, bleeding jr10 controlled, No redness/swelling at site. Pressure dressing applied. Administered Medications: 07:40 Drug: Decadron - Dexamethasone 10 mg Route: IVP; Site: right antecubital; jr10 10:05 Follow up: Response: No adverse reaction jr10 07:42 Drug: Rocephin 1 grams Route: IV; Rate: calculated rate; Site: right antecubital; jr10 10:06 Follow up: Response: No adverse reaction; IV Status: Completed infusion jr10 07:46 Drug: Ringers - Lactated Ringers Solution 1000 ml Route: IV; Rate: bolus; Site: right jr10 antecubital; 07:46 Drug: Clindamycin 600 mg Route: IVPB; Infused Over: 30 mins; Site: right antecubital; jr10 08:20 Follow up: Response: No adverse reaction; IV Status: Completed infusion jr10 Outcome: 10:09 Discharge ordered by MD. jr8 10:40 Discharged to home ambulatory. jr10 10:40 Condition: improved 10:40 Discharge instructions given to patient, Instructed on discharge instructions, follow up and referral plans. Demonstrated understanding of instructions, follow-up care, medications, Prescriptions given X 3. 10:40 Patient left the ED. jr10 Signatures: Ankit Mendoza, RN RN Elma Champagne Josh, PA PA jr8 Sebastian Barnett, RN RN bp Misty Shane kj1 Joe Benedict fj1 Obdulia Garcia RN RN jr10 Corrections: (The following items were deleted from the chart) 07:04 06:53 [facility] 10:02 10:00 BP 139 / 70; Pulse 68bpm; Resp 17bpm; Pulse Ox 98% RA; Pain 2/10; jr10 jr10 10:40 10:00 BP 114 / 91; Pulse 104bpm; Resp 20bpm; Pulse Ox 97% RA; jr10 jr10
[2019-10-14 10:53] VITALS: BP 114/91; TEMP 99; O2SAT 97
--- NOTE | 2019-10-15 10:27 | CON ---
Date of Consultation: 10/14/2019 Reason For Consultation: Pharyngeal abscess. History Of Present Illness: I was contacted by the emergency room PA for consultation regarding this patient's finding. He reported the patient had a muffled voice and presented with symptoms concerning for a peritonsillar abscess. He was treated with medication including steroids, antibiotics, and hydration. There was concern on the part of the emergency room staff regarding his persistent muffled voice despite improvement in pain and unusual radiographic findings. I discussed with the emergency room staff regarding options of close followup as an outpatient in my clinic versus admission for observation, continued IV antibiotics and steroids and IV fluids. After discussing the patient's symptoms, we agreed that close observation in the hospital was continued medical therapy was preferable. A plan was established for the patient to be admitted to the hospitalist with ENT consultation and followup. Physical Examination: Physical exam not applicable. The patient was managed via telephone and review of records in accordance with hospital policy due to the COVID health crisis. Imaging: Data I personally reviewed CT scan of the neck, which demonstrated a hypodensity in the left piriform sinus of less than 1 cm in its greatest diameter. There was no clear impingement on the patient's airway. The epiglottis did appear to be mildly edematous on the left side. The base of tongue and tonsillar area were inflamed without significant impingement on the airway. The patient's sinuses, mastoid and middle ear appeared clear. There were no significant lesions of the thyroid. There was mild likely reactive lymphadenopathy. Assessment: Left hypopharyngeal abscess. Plan: The emergency room doctor and I established a plan for placement into observation by the hospitalist with ENT consult. However, on later discussion, the patient did not desire admission and felt clinically improved. Therefore, he was discharged to home with plans to contact my clinic early in the morning for arrangement of an in-person evaluation and close followup of his condition. NIKOLAY/OPHELIA Voice ID: [id number] Report ID: [id number] LUIS A
== END 2019-10-14 10:40 | disposition home or self-care (01) ==
LOC: ER 06:16
DX: J03.00 Acute streptococcal tonsillitis, unspecified (principal); J39.1 Other abscess of pharynx
CPT/HCPCS: 36415; 70491; 80048; 85025; 86308; 87081; 96365; 96375; 99284; J0696; J1100; J7120; Q9967

== ENCOUNTER 2020-08-23 08:22 | Emergency (ER) | payer SELFPAY ==
[2020-08-23] MEDS ORDERED: LIDOCAINE 1% W/EPI 1:100,000 MDV 20 ML VIAL ONE (08:56)
--- NOTE | 2020-08-23 09:15 | EDPHYS ---
Physician Documentation [facility] Name: Bernarda Finn Age: 20 yrs Sex: Male : 2000 Arrival Date: 08/23/2020 Time: 08:23 Bed 5 Private MD: ED Physician Mo Anaya HPI: 08/23 09:09 This 20 yrs old Black Male presents to ER via Ambulatory with complaints of Wrist ma2 Laceration. 09:09 The patient or guardian reports a laceration. The complaints affect the right side ma2 which is dominant, right hand. Onset: The symptoms/episode began/occurred suddenly, 1 hour(s) ago. Associated signs and symptoms: Pertinent negatives: fever, nausea, tingling distally. Severity of symptoms: At their worst the symptoms were mild, in the emergency department the symptoms are unchanged. The patient has not experienced similar symptoms in the past. 09:09 Context: The problem was sustained was riding a horse and got hand accidently pulled ma2 into a glass window, sustained lac to right wrist . Historical: - Allergies: 08:33 No Known Allergies; jd3 - Home Meds: 08:33 None [Active]; jd3 - PMHx: 08:33 None; jd3 - PSHx: 08:33 None; jd3 - Immunization history:: Adult Immunizations up to date. - Social history:: Smoking status: Patient denies any tobacco usage or history of. - Family history:: not pertinent. ROS: 09:09 Constitutional: Negative for fever, chills, and weight loss, Cardiovascular: Negative ma2 for chest pain, palpitations, and edema, Respiratory: Negative for shortness of breath, cough, wheezing, and pleuritic chest pain, Abdomen/GI: Negative for abdominal pain, nausea, diarrhea, and constipation, Skin: Negative for injury, rash, and discoloration, Psych: Negative for depression, anxiety, suicide ideation, homicidal ideation, and hallucinations. 09:09 All other systems are negative. Exam: 09:09 Constitutional: This is a well developed, well nourished patient who is awake, alert, ma2 and in no acute distress. Chest/axilla: Normal chest wall appearance and motion. Nontender with no deformity. No lesions are appreciated. Cardiovascular: Regular rate and rhythm with a normal S1 and S2. No gallops, murmurs, or rubs. Normal PMI, no JVD. No pulse deficits. Respiratory: Lungs have equal breath sounds bilaterally, clear to auscultation and percussion. No rales, rhonchi or wheezes noted. No increased work of breathing, no retractions or nasal flaring. Abdomen/GI: Soft, non-tender, with normal bowel sounds. No distension or tympany. No guarding or rebound. No evidence of tenderness throughout. Skin: Warm, dry with normal turgor. Normal color with no rashes, no lesions, and no evidence of cellulitis. MS/ Extremity: right wrist lacertaion 2 superficals ones no vascular or tendon injury, Pulses equal, no cyanosis. Neurovascular intact. Full, normal range of motion. Neuro: Awake and alert, GCS 15, oriented to person, place, time, and situation. Cranial nerves II-XII grossly intact. Motor strength 5/5 in all extremities. Sensory grossly intact. Cerebellar exam normal. Normal gait. Vital Signs: 08:33 BP 152 / 97; Pulse 95; Resp 16 S; Temp 98.2(TE); Pulse Ox 97% on R/A; Weight 86.18 kg jd3 (R); Height 6 ft. 0 in. (182.88 cm) (R); Pain 0/10; 08:33 Body Mass Index 25.77 (86.18 kg, 182.88 cm) jd3 Laceration: 09:09 Wound Repair of 2cm ( 0.8in ) subcutaneous laceration to right hand. Linear shaped.. ma2 Distal neuro/vascular/tendon intact. Anesthesia: Local anesthetic administered with 10 mls of 1% lidocaine w/ Epi. Wound prep: Moderate cleansing. Skin closed with 5 1-0 Prolene using simple sutures and sterile technique. Dressed with 4x4's. Patient tolerated well. MDM: 08:29 Patient medically screened. ma2 09:09 Differential diagnosis: contusion, abrasion, tendonitis. Data reviewed: vital signs, ma2 nurses notes. Counseling: I had a detailed discussion with the patient and/or guardian regarding: the historical points, exam findings, and any diagnostic results supporting the discharge/admit diagnosis, the presence of at least one elevated blood pressure reading (>120/80) during this emergency department visit, the need for outpatient follow up. Response to treatment: the patient's symptoms have resolved after treatment. 08/23 08:33 Order name: Prolene, Sutures; Complete Time: 08:39 ma2 08/23 08:33 Order name: Dressing - Wound; Complete Time: 09:11 ma2 08/23 08:33 Order name: Gloves, Sterile; Complete Time: 08:36 ma2 08/23 08:33 Order name: Setup Suture Tray; Complete Time: 08:36 ma2 Administered Medications: 08:42 Drug: Lidocaine-Epinephrine -1%: (1:100,000) 10 ml Volume: 20 ml; Route: Infiltration; jd3 Disposition: 08/23/20 09:14 Discharged to Home. Impression: Laceration without foreign body of right wrist. - Condition is Stable. - Discharge Instructions: Laceration Care, Adult, [id number]. - Work release form, Medication Reconciliation Form, Thank You Letter, Antibiotic Education, Prescription Opioid Use form. - Follow up: Private Physician; When: Tomorrow; Reason: Continuance of care. - Notes: remove sutures in 2 weeks Signatures: Almas Cee RN RN jd3 Mo Anaya MD MD ma2 Corrections: (The following items were deleted from the chart) 09: 09:14 08/23/2020 09:14 Discharged to Home. Impression: Laceration without foreign body jd3 of right wrist. Condition is Stable. Forms are Work release form, Medication Reconciliation Form, Thank You Letter, Antibiotic Education, Prescription Opioid Use. Follow up: Private Physician; When: Tomorrow; Reason: Continuance of care. ma2
--- NOTE | 2020-08-23 09:15 | ER ---
Nurse's Notes [facility] Name: Bernarda Finn Age: 20 yrs Sex: Male : 2000 Arrival Date: 08/23/2020 Time: 08:23 Bed 5 Private MD: Diagnosis: Laceration without foreign body of right wrist Presentation: 08/23 08:30 Chief complaint: Patient states: "I was riding a young horse and he put my right hand jd3 through some glass. I figured I needed some stitches. I got my tetanus not to long ago so I should be ok on that.". Coronavirus screen: At this time, the client does not indicate any symptoms associated with coronavirus-19. Ebola Screen: Patient negative for fever greater than or equal to 101.5 degrees Fahrenheit, and additional compatible Ebola Virus Disease symptoms. Initial Sepsis Screen: Does the patient meet any 2 criteria? No. Patient's initial sepsis screen is negative. Does the patient have a suspected source of infection? No. Patient's initial sepsis screen is negative. Risk Assessment: Do you want to hurt yourself or someone else? Patient reports no desire to harm self or others. Onset of symptoms was August 23, 2020. 08:30 Method Of Arrival: Ambulatory jd3 08:30 Acuity: ROCK 4 jd3 Historical: - Allergies: 08:33 No Known Allergies; jd3 - Home Meds: 08:33 None [Active]; jd3 - PMHx: 08:33 None; jd3 - PSHx: 08:33 None; jd3 - Immunization history:: Adult Immunizations up to date. - Social history:: Smoking status: Patient denies any tobacco usage or history of. - Family history:: not pertinent. Screenin:35 Abuse screen: Denies threats or abuse. Nutritional screening: No deficits noted. jd3 Tuberculosis screening: No symptoms or risk factors identified. Fall Risk Ambulatory Aid- None/Bed Rest/Nurse Assist (0 pts). Gait- Normal/Bed Rest/Wheelchair (0 pts) Mental Status- Oriented to own ability (0 pts). Total Bravo Fall Scale indicates No Risk (0-24 pts). Assessment: 08:34 General: Appears in no apparent distress. comfortable, Behavior is calm, cooperative, jd3 appropriate for age. Pain: Denies pain. Neuro: Level of Consciousness is awake, alert, obeys commands, Oriented to person, place, time, situation. Cardiovascular: Denies chest pain, Capillary refill < 3 seconds Patient's skin is warm and dry. Respiratory: Airway is patent Respiratory effort is even, unlabored, Respiratory pattern is regular, symmetrical, Denies cough, shortness of breath. GI: No signs and/or symptoms were reported involving the gastrointestinal system. : No signs and/or symptoms were reported regarding the genitourinary system. EENT: No signs and/or symptoms were reported regarding the EENT system. Derm: Skin is intact, Skin is dry, Skin is normal, Skin temperature is warm. Musculoskeletal: Circulation, motion, and sensation intact. Range of motion: intact in all extremities. Injury Description: Laceration sustained to right wrist is full thickness, 0.5 to 2.5 cm long, not bleeding, bleeding controlled with pressure dressing. Vital Signs: 08:33 BP 152 / 97; Pulse 95; Resp 16 S; Temp 98.2(TE); Pulse Ox 97% on R/A; Weight 86.18 kg jd3 (R); Height 6 ft. 0 in. (182.88 cm) (R); Pain 0/10; 08:33 Body Mass Index 25.77 (86.18 kg, 182.88 cm) jd3 ED Course: 08:23 Patient arrived in ED. mr 08:29 Mo Anaya MD is Attending Physician. ma2 08:30 Almas Cee, SARAH is Primary Nurse. jd3 08:33 Triage completed. jd3 08:34 Arm band placed on. jd3 08:35 Patient has correct armband on for positive identification. Bed in low position. Call jd3 light in reach. Side rails up X 1. Pulse ox on. NIBP on. 09:08 Assist provider with laceration repair on right wrist that was 2.5 cm. or less using jd3 sutures. Set up tray. Performed by Mo Anaya MD Dressed with 4X4s, Kerlix, Patient tolerated well. 09:08 Patient did not have IV access during this emergency room visit. jd3 Administered Medications: 08:42 Drug: Lidocaine-Epinephrine -1%: (1:100,000) 10 ml Volume: 20 ml; Route: Infiltration; jd3 Outcome: 09:14 Discharge ordered by . ma2 09:20 Discharged to home ambulatory, with family. jd3 09:20 Condition: stable 09:20 Discharge instructions given to patient, Instructed on discharge instructions, follow up and referral plans. Demonstrated understanding of instructions, follow-up care. 09:21 Patient left the ED. jd3 Signatures: Agatha GarciaiesAlmas RN RN jd3 Mo Anaya MD MD ma2 Corrections: (The following items were deleted from the chart) 08:36 08:30 Risk Assessment: Do you want to hurt yourself or someone else? Patient reports no jd3 desire to harm self or others. jd3
[2020-08-23 09:29] VITALS: BP 152/97; TEMP 98.2; O2SAT 97
== END 2020-08-23 09:21 | disposition home or self-care (01) ==
LOC: ER 08:22
PROC: 0JQG0ZZ Repair Right Lower Arm Subcutaneous Tissue and Fascia, Open Approach (ICD-10-PCS; principal; 2020-08-23)
DX: S61.511A Laceration without foreign body of right wrist, initial encounter (principal); W25.XXXA Contact with sharp glass, initial encounter; Y93.52 Activity, horseback riding
CPT/HCPCS: 99283

== ENCOUNTER 2020-09-06 11:18 | Emergency (ER) | payer SELFPAY ==
--- NOTE | 2020-09-06 11:46 | EDPHYS ---
Physician Documentation [facility] Name: Bernarda Finn Age: 20 yrs Sex: Male : 2000 Arrival Date: 09/06/2020 Time: 11:21 Bed 14 Private MD: ED Physician Jairo Durham HPI: 09/06 11:43 This 20 yrs old Black Male presents to ER via Ambulatory with complaints of Suture jmm Removal. 11:43 The patient has sutures on the right arm. jmm 11:43 Previous treatment: 2 weeks prior. Sutures/gloria progress: The patient has no c/o's. jmm The wound is well-healing with no redness, swelling, discharge, or dehiscence reported. The patient has not experienced similar symptoms in the past. Historical: - Allergies: 11:24 No Known Allergies; sv - Immunization history:: Adult Immunizations. - Social history:: Smoking status: . ROS: 11:43 Constitutional: Negative for fever, chills, and weight loss, Cardiovascular: Negative jmm for chest pain, palpitations, and edema, Respiratory: Negative for shortness of breath, cough, wheezing, and pleuritic chest pain. 11:43 MS/extremity: Positive for laceration. 11:43 All other systems are negative. Exam: 11:43 Constitutional: This is a well developed, well nourished patient who is awake, alert, jmm and in no acute distress. Head/Face: atraumatic. Eyes: EOMI, no conjunctival erythema appreciated ENT: Moist Mucus Membranes Neck: Trachea midline, Supple Chest/axilla: Normal chest wall appearance and motion. Cardiovascular: Regular rate and rhythm. No edema appreciated Respiratory: Normal respirations, no respiratory distress appreciated Abdomen/GI: Non distended, soft Back: Normal ROM 11:43 Skin: healing laceration noted to the right wrist, no erythema, induration or purulent drainage appreciated. . 11:43 Neuro: Orientation: is normal, Mentation: is normal, Memory: is normal. 11:43 Psych: Behavior/mood is pleasant, cooperative. Vital Signs: 11:24 BP 105 / 78; Pulse 76; Resp 16; Temp 98.6; Pulse Ox 99% ; sv Procedures: 11:45 Suture/Staple removal: Removed 5 sutures, from right arm, site appears well healed, jmm dressed with Patient tolerated well. MDM: 11:36 Patient medically screened. [facility] 11:45 Data reviewed: vital signs, nurses notes. Counseling: I had a detailed discussion with [facility] the patient and/or guardian regarding: the historical points, exam findings, and any diagnostic results supporting the discharge/admit diagnosis, the need for outpatient follow up, to return to the emergency department if symptoms worsen or persist or if there are any questions or concerns that arise at home. Administered Medications: No medications were administered Disposition: 11:45 Chart complete. [facility] 12:28 Co-signature as Attending Physician, Jairo Durham MD I agree with the assessment and kdr plan of care. Disposition Summary: 09/06/20 11:46 Discharge Ordered Location: Home [facility] Condition: Stable [facility] Diagnosis - Encounter for removal of sutures [facility] Followup: [facility] - With: Private Physician - When: 2 - 3 days - Reason: Recheck today's complaints, Continuance of care, Re-evaluation by your physician Discharge Instructions: - Discharge Summary Sheet [facility] - Suture Removal, Care After [facility] Forms: - Medication Reconciliation Form [facility] - Thank You Letter [facility] - Antibiotic Education [facility] - Prescription Opioid Use [facility] Signatures: Candelaria Wiggins RN RN Jairo Cadena MD MD kdr Mickail, Joel, PA PA [facility]
--- NOTE | 2020-09-06 11:46 | ER ---
Nurse's Notes [facility] Name: Bernarda Finn Age: 20 yrs Sex: Male : 2000 Arrival Date: 09/06/2020 Time: 11:21 Bed 14 Private MD: Diagnosis: Encounter for removal of sutures Presentation: 09/06 11:23 Chief complaint: Patient states: needs sutures removed right wrist. Coronavirus screen: sv Client denies travel out of the [place] in the last 14 days. At this time, the client does not indicate any symptoms associated with coronavirus-19. Ebola Screen: No symptoms or risks identified at this time. Risk Assessment: Do you want to hurt yourself or someone else? Patient reports no desire to harm self or others. Onset of symptoms was September 06, 2020. 11:23 Method Of Arrival: Ambulatory sv 11:23 Acuity: ROCK 5 sv 11:24 Initial Sepsis Screen: Does the patient meet any 2 criteria? No. Patient's initial sv sepsis screen is negative. Does the patient have a suspected source of infection? No. Patient's initial sepsis screen is negative. Triage Assessment: 11:23 General: Appears in no apparent distress. comfortable, Behavior is calm, cooperative, sv appropriate for age. Pain: Denies pain. Neuro: Level of Consciousness is awake, alert, obeys commands, Oriented to person, place, time, situation, Gait is steady. Respiratory: Respiratory effort is even, unlabored. Historical: - Allergies: 11:24 No Known Allergies; sv - Immunization history:: Adult Immunizations. - Social history:: Smoking status: . Screenin:13 Abuse screen: Denies threats or abuse. Denies injuries from another. Nutritional tr6 screening: No deficits noted. Tuberculosis screening: No symptoms or risk factors identified. Fall Risk Fall in past 12 months (25 points). Assessment: 12:12 General: Appears in no apparent distress. Pain: Denies pain. Neuro: No deficits noted. tr6 Cardiovascular: No deficits noted. Respiratory: No deficits noted. GI: No deficits noted. : No deficits noted. EENT: No deficits noted. Derm: Reports here to have sutures removed. Musculoskeletal: No deficits noted. Vital Signs: 11:24 BP 105 / 78; Pulse 76; Resp 16; Temp 98.6; Pulse Ox 99% ; sv ED Course: 11:21 Patient arrived in ED. mr 11:23 Harvey Morrell PA is PHCP. [facility] 11:23 Jairo Durham MD is Attending Physician. [facility] 11:24 Triage completed. 11:24 Saida Stinson, RN is Primary Nurse. tr6 11:24 Arm band placed on. sv 12:13 No apparent distress. tr6 12:13 Patient has correct armband on for positive identification. Bed in low position. Call tr6 light in reach. Side rails up X 1. Door closed. Noise minimized. Visitors limited. Lights dimmed. Moved to private room. 12:13 No provider procedures requiring assistance completed. Patient did not have IV access tr6 during this emergency room visit. Administered Medications: No medications were administered Outcome: 11:46 Discharge ordered by . jmm 12:13 Discharged to home ambulatory. tr6 12:13 Condition: good 12:13 Discharge instructions given to patient, family, Instructed on discharge instructions, follow up and referral plans. Demonstrated understanding of instructions, Prescriptions given X 12:14 Patient left the ED. tr6 Signatures: Candelaria Wiggins, RN RN Harvey Morrell PA PA [facility] Agatha Garcia mr Saida Stinson, RN RN tr6
[2020-09-06 12:19] VITALS: BP 105/78; TEMP 98.6; O2SAT 99
== END 2020-09-06 12:14 | disposition home or self-care (01) ==
LOC: ER 11:18
DX: Z48.02 Encounter for removal of sutures (principal)
CPT/HCPCS: 99282

== ENCOUNTER 2021-01-11 17:21 | Emergency (ER) | payer SELFPAY ==
--- NOTE | 2021-01-11 19:30 | EDPHYS ---
Physician Documentation [facility] Name: Bernarda Finn Age: 21 yrs Sex: Male : 2000 Arrival Date: 01/11/2021 Time: 17:24 Bed 12 Private MD: ED Physician Joann Sams HPI: 01/11 19:27 This 21 yrs old Black Male presents to ER via Ambulatory with complaints of Fever. jmm 19:27 The patient reports fever, not measured (subjective). Onset: The symptoms/episode jmm began/occurred gradually, 2 day(s) ago. Modifying factors: there are no obvious modifying factors. Associated signs and symptoms: Pertinent positives: sore throat. The patient has experienced similar episodes in the past. Patient is immunized for covid 19. Historical: - Allergies: 17:38 No Known Allergies; tw2 - Home Meds: 17:38 None [Active]; tw2 - PMHx: 17:38 None; tw2 - PSHx: 17:38 None; tw2 - Immunization history:: Client reports having NOT received the Covid vaccine. - Social history:: Smoking status: Patient denies any tobacco usage or history of. ROS: 19:27 Cardiovascular: Negative for chest pain, palpitations, and edema, Respiratory: Negative jmm for shortness of breath, cough, wheezing, and pleuritic chest pain, Abdomen/GI: Negative for abdominal pain, nausea, vomiting, diarrhea, and constipation. 19:27 Constitutional: Positive for fever. 19:27 All other systems are negative. Exam: 19:27 Constitutional: This is a well developed, well nourished patient who is awake, alert, jmm and in no acute distress. Head/Face: atraumatic. Eyes: EOMI, no conjunctival erythema appreciated 19:27 Neck: Trachea midline, Supple Chest/axilla: Normal chest wall appearance and motion. Cardiovascular: Regular rate and rhythm. No edema appreciated Respiratory: Normal respirations, no respiratory distress appreciated Abdomen/GI: Non distended, soft Back: Normal ROM Skin: General appearance color normal MS/ Extremity: Moves all extremities, no obvious deformities appreciated, no edema noted to the lower extremities Neuro: Awake and alert, normal gait Psych: Behavior is normal, Mood is normal, Patient is cooperative and pleasant 19:27 ENT: Mild pharyngeal erythema noted, no uvular shift, and no peritonsillar mass appreciated. Vital Signs: 17:36 BP 145 / 89; Pulse 102; Resp 17; Temp 98.8(TE); Pulse Ox 100% on R/A; Weight 88.45 kg tw2 (R); Height 6 ft. 1 in. (185.42 cm); Pain 0/10; 20:12 BP 112 / 73; Pulse 76; Resp 18; Temp 98.2; Pulse Ox 100% ; vg1 17:36 Body Mass Index 25.73 (88.45 kg, 185.42 cm) tw2 MDM: 19:27 Patient medically screened. [facility] 19:29 Data reviewed: vital signs, nurses notes. Counseling: I had a detailed discussion with tammy the patient and/or guardian regarding: the historical points, exam findings, and any diagnostic results supporting the discharge/admit diagnosis, lab results, the need for outpatient follow up, to return to the emergency department if symptoms worsen or persist or if there are any questions or concerns that arise at home. ED course: Patient is alert nontoxic in appearance in the ED. No signs of respiratory distress. Patient is immunized for coronavirus. Is not hypoxic. Patient otherwise advised follow-up with PCP and otherwise given strict return precautions. Patient understood agrees plan of care.. 01/11 17:53 Order name: COVID-19 (Coronavirus) Document "Date of Onset" if Symptomatic [facility] 01/11 17:53 Order name: Flu [facility] 01/11 17:53 Order name: Strep; Complete Time: 19:59 [facility] 01/11 19:58 Order name: Throat Culture EDMS Administered Medications: No medications were administered Disposition Summary: 01/11/21 20:18 Discharge Ordered Location: Home(01/11/21 20:18) [facility] Condition: Stable(01/11/21 20:18) [facility] Diagnosis - Acute pharyngitis, unspecified(01/11/21 20:18) [facility] Followup: [facility] - With: Private Physician - When: 2 - 3 days - Reason: Recheck today's complaints, Continuance of care, Re-evaluation by your physician Discharge Instructions: - Pharyngitis [facility] - Discharge Summary Sheet vg1 Forms: - Medication Reconciliation Form [facility] - Thank You Letter [facility] - Work release form vg1 - Antibiotic Education jmm - Prescription Opioid Use [facility] Prescriptions: - Amoxicillin 875 mg Oral Tablet - take 1 tablet by ORAL route every 12 hours for 10 days; 20 tablet; Refills: 0, [facility] Product Selection Permitted Addendum: 01/13/2021 08:39 Co-signature as Attending Physician, Joann Sams MD I agree with the assessment and s p3 plan of care. Signatures: Dispatcher [employer] EDMS Harvey Morrell PA PA Lauren Storm RN RN tw2 Joann Sams MD MD sp3 Corrections: (The following items were deleted from the chart) 01/11 20:14 19:30 Home jmm vg1 20:14 19:30 Stable [facility] vg1 20:14 19:30 Acute pharyngitis, unspecified [facility] vg1
--- NOTE | 2021-01-11 19:30 | ER ---
Nurse's Notes [facility] Name: Bernarda Finn Age: 21 yrs Sex: Male : 2000 Arrival Date: 01/11/2021 Time: 17:24 Bed 12 Private MD: Diagnosis: Acute pharyngitis, unspecified Presentation: 01/11 17:36 Chief complaint: Patient states: i had fever Tuesday and Tuesday. i took otc medicine tw2 and it broke Tuesday. my work is making me come get a work note before i can come back. i get this every year when the weather changes. literally just need a work note. Coronavirus screen: At this time, the client does not indicate any symptoms associated with coronavirus-19. Ebola Screen: Patient denies travel to an Ebola-affected area in the 21 days before illness onset. 17:36 Method Of Arrival: Ambulatory tw2 17:38 Initial Sepsis Screen: Does the patient meet any 2 criteria? No. Patient's initial tw2 sepsis screen is negative. Does the patient have a suspected source of infection? No. Patient's initial sepsis screen is negative. Risk Assessment: Do you want to hurt yourself or someone else? Patient reports no desire to harm self or others. Onset of symptoms was January 11, 2021. 17:38 Acuity: ROCK 4 tw2 Triage Assessment: 17:38 General: Appears in no apparent distress. Behavior is calm, cooperative, appropriate tw2 for age. Pain: Denies pain. Respiratory: Airway is patent Respiratory effort is even, unlabored, Respiratory pattern is regular, symmetrical. Historical: - Allergies: 17:38 No Known Allergies; tw2 - Home Meds: 17:38 None [Active]; tw2 - PMHx: 17:38 None; tw2 - PSHx: 17:38 None; tw2 - Immunization history:: Client reports having NOT received the Covid vaccine. - Social history:: Smoking status: Patient denies any tobacco usage or history of. Screenin:39 Abuse screen: Denies threats or abuse. Nutritional screening: No deficits noted. tw2 Tuberculosis screening: No symptoms or risk factors identified. Fall Risk None identified. Assessment: 19:25 General: Appears in no apparent distress. comfortable, Behavior is calm, cooperative. vg1 Pain: Complains of pain in throat Pain currently is 2 out of 10 on a pain scale. Pain began 2-3 days ago. Neuro: Level of Consciousness is awake, alert, obeys commands, Oriented to person, place, time, situation. Cardiovascular: Patient's skin is warm and dry. Respiratory: Airway is patent Respiratory effort is even, unlabored. GI: Patient currently denies diarrhea, nausea, vomiting. : No signs and/or symptoms were reported regarding the genitourinary system. EENT: Throat is clear is pink. Derm: Skin is intact, is healthy with good turgor. Musculoskeletal: Circulation, motion, and sensation intact. Vital Signs: 17:36 BP 145 / 89; Pulse 102; Resp 17; Temp 98.8(TE); Pulse Ox 100% on R/A; Weight 88.45 kg tw2 (R); Height 6 ft. 1 in. (185.42 cm); Pain 0/10; 20:12 BP 112 / 73; Pulse 76; Resp 18; Temp 98.2; Pulse Ox 100% ; vg1 17:36 Body Mass Index 25.73 (88.45 kg, 185.42 cm) tw2 ED Course: 17:24 Patient arrived in ED. mr 17:36 Harvey Morrell PA is PHCP. [facility] 17:36 Joann Sams MD is Attending Physician. [facility] 17:38 Triage completed. tw2 17:38 Arm band placed on. tw2 19:08 Saray Wise, SARAH is Primary Nurse. dc2 19:26 No provider procedures requiring assistance completed. Patient did not have IV access vg1 during this emergency room visit. 19:27 Patient has correct armband on for positive identification. Bed in low position. Call vg1 light in reach. Side rails up X 1. Administered Medications: No medications were administered Outcome: 19:30 Discharge ordered by MD. [facility] 20:16 Discharged to home ambulatory. vg1 20:16 Condition: stable 20:16 Discharge instructions given to patient, Instructed on discharge instructions, follow up and referral plans. medication usage, Demonstrated understanding of instructions, follow-up care, medications, Prescriptions given X 1. 20:18 Discharge ordered by . tammy 20:19 Patient left the ED. vg1 Signatures: Harvey Morrell PA PA jmm Rivera, Mary mr Lauren Arnold, RN RN tw2 Rachel Garza RN RN vg1 Saray Wise RN RN dc2 Corrections: (The following items were deleted from the chart) 17:43 17:36 Chief complaint: Patient states: i had fever Tuesday and Tuesday. i took otc tw2 medicine and it broke. my work is making me come get a work note before i can come back. i get this every year when the weather changes. literally just need a work note. tw2
[2021-01-11 20:24] VITALS: O2SAT 100
[2021-01-11 20:25] VITALS: BP 112/73; TEMP 98.2
== END 2021-01-11 20:19 | disposition home or self-care (01) ==
LOC: ER 17:21
DX: J02.9 Acute pharyngitis, unspecified (principal); Z20.822 Contact with and (suspected) exposure to COVID-19
CPT/HCPCS: 87070; 87081; 99282

== ENCOUNTER 2023-01-20 00:07 | Emergency (ER) | payer SELFPAY ==
[2023-01-20] MEDS ORDERED: IBUPROFEN 400 MG TAB ONE (00:56)
[2023-01-20] MEDS ORDERED: CODEINE 30MG/APAP 300MG TAB ONE (00:56)
[2023-01-20 01:52] LABS: Absolute Lymphocytes (CBC) 1.9 K/uL (0.7-4.9); Hematocrit 42.5 % (39.6-49.0); Lymphocytes % 32.6 % (15.3-44.8); MCV 88.7 fL (80-100); MPV 8.5 fL (7.6-11.3); Platelets 252 thou/uL (152-406); RBC Red Blood Cell Count 4.79 M/uL (4.33-5.43)
[2023-01-20 02:16] LABS: Potassium 3.9 mEq/L (3.5-5.1)
--- NOTE | 2023-01-20 02:46 | EDPHYS ---
Physician Documentation [facility] Name: Bernarda Finn Age: 23 yrs Sex: Male : 2000 Arrival Date: 01/20/2023 Time: 00:07 Bed 7 Private MD: ED Physician Mac Amanda HPI: 01/20 00:13 This 23 yrs old Black Male presents to ER via Unassigned with complaints of LEFT SIDE sp4 FACIAL PRESSURE/PAIN. 00:28 23-year-old male with no significant past medical history presents with a worsening sp4 left-sided facial pain and left ear pain starting 2 months ago worsening this evening. Patient states he has not a history of prior similar pains.. Historical: - Allergies: 00:25 No Known Allergies; bp - Home Meds: 00:25 None [Active]; bp - PMHx: 00:25 None; bp - Immunization history:: Adult Immunizations up to date. - Social history:: Smoking status: Patient denies any tobacco usage or history of. - Family history:: not pertinent. ROS: 00:28 Constitutional: Negative for fever, chills, and weight loss, Eyes: Negative for injury, sp4 pain, redness, and discharge, ENT: \E\Positive left ear pain positive left facial pain, positive left maxillary pain 00:28 All other systems are negative, Exam: 00:28 Constitutional: This is a well developed, well nourished patient who is awake, alert, sp4 and in no acute distress. Head/Face: Normocephalic, atraumatic. Eyes: Pupils equal round and reactive to light, extra-ocular motions intact. Lids and lashes normal. Conjunctiva and sclera are not injected. Cornea within normal limits. Periorbital areas with no swelling, redness, or edema. ENT: Nares patent. No nasal discharge, no septal abnormalities noted. Oropharynx with no redness, swelling, or masses, exudates, or evidence of obstruction, uvula midline. Mucous membranes moist. There is left ear canal redness noted Tatian, left ear tympanic membrane opacification, right ear exam is unremarkable Neck: Trachea midline, no thyromegaly or masses palpated, and no cervical lymphadenopathy. Supple, full range of motion without nuchal rigidity, or vertebral point tenderness. Chest/axilla: Normal chest wall appearance and motion. Nontender with no deformity. No lesions are appreciated. Cardiovascular: Regular rate and rhythm with a normal S1 and S2. No gallops, murmurs, or rubs. Normal PMI, no JVD. No pulse deficits. Respiratory: Lungs have equal breath sounds bilaterally, clear to auscultation and percussion. No rales, rhonchi or wheezes noted. No increased work of breathing, no retractions or nasal flaring. Abdomen/GI: Soft, non-tender, with normal bowel sounds. No distension or tympany. No guarding or rebound. No evidence of tenderness throughout. Back: No spinal tenderness. No costovertebral tenderness. Skin: Warm, dry with normal turgor. Normal color with no rashes, no lesions, and no evidence of cellulitis. MS/ Extremity: Pulses equal, no cyanosis. Neurovascular intact. Full, normal range of motion. Neuro: Awake and alert, GCS 15, oriented to person, place, time, and situation. Cranial nerves II-XII grossly intact. Motor strength 5/5 in all extremities. Sensory grossly intact. Psych: Awake, alert, with orientation to person, place and time. Behavior, mood, and affect are within normal limits Vital Signs: 00:23 BP 166 / 100; Pulse 78; Resp 18; Temp 97.8; Pulse Ox 97% ; Weight 95.25 kg; Height 6 bp ft. 0 in. ; 01:51 BP 150 / 94; Pulse 77; Resp 18 S; Pulse Ox 99% on R/A; as6 03:00 BP 137 / 79; Pulse 70; Resp 18 S; Pulse Ox 99% on R/A; ha1 00:23 Body Mass Index 28.48 (95.25 kg, 182.88 cm) bp MDM: 00:33 Patient medically screened. sp4 02:39 ED course: CT head - COMPARISON: No relevant prior studies available. FINDINGS: BRAIN: sp4 Unremarkable. The jennings-white matter differentiation is preserved . No hemorrhage. No significant white matter disease. No edema. No extra-axial fluid collections. VENTRICLES: Unremarkable. No ventriculomegaly. BONES/JOINTS: No acute fracture. SOFT TISSUES: Unremarkable. SINUSES: Unremarkable as visualized. No acute sinusitis. MASTOID AIR CELLS: Unremarkable as visualized. No mastoid effusion. ORBITS: Unremarkable as visualized. IMPRESSION: No acute intracranial findings. . ED course: CT face with IV contrast - COMPARISON: No relevant prior studies available. FINDINGS: BONES/JOINTS: The orbital floors and thomson are intact. The zygomatic arches and pterygoid plates are intact. There is no acute fracture. The maxilla and mandible are intact. SOFT TISSUES: Unremarkable. ORBITS: The globes, extraocular muscles, and optic nerve complexes are within normal limits. SINUSES: The paranasal sinuses are clear. No air-fluid levels. NASAL CAVITY/SEPTUM: The nasal bones are intact. IMPRESSION: No acute findings on this contrasted CT of the face to explain the patient's symptoms. . 02:44 Differential Diagnosis Otitis media, otitis externa, dental infection, facial abscess, sp4 infected cyst. Data reviewed: vital signs, nurses notes, lab test result(s), CBC, electrolytes, hepatic panel. Consideration of Admission/Observation Escalation of care including admission/observation considered. ED course: Patient will be prescribed extended course of cephalexin for advanced case of left otitis media. ED course: CT today unremarkable. Patient stable for discharge home. . 01/20 00:28 Order name: Basic Metabolic Panel; Complete Time: 02:35 sp4 01/20 00:28 Order name: CBC with Diff; Complete Time: 02:35 sp4 01/20 02:29 Order name: CREATININE WHOLE BLOOD; Complete Time: 02:35 EDMS 01/20 00:27 Order name: CT Facial Bones W/ Con \T\ Mpr sp4 01/20 00:27 Order name: CT Head Brain wo Cont sp4 01/20 00:28 Order name: IV Saline Lock; Complete Time: 00:54 sp4 01/20 00:28 Order name: Labs collected and sent; Complete Time: 00:54 sp4 01/20 01:19 Order name: Misc. Order: RECOLLECT ALL LABS; Complete Time: 01:51 rv1 Administered Medications: 00:54 Drug: Acetaminophen-Codeine PO (300 mg-30 mg) 2 tabs PO once; RASS on ADMIN: Combtv4, ha1 Very Agttd3, Agttd2, Rstlss1, AlertClm0, Drwsy-1, Lt Sdtn-2, Mod Sdtn-3, Dp Sdtn-4, UnArsble-5 Route: PO; 01:20 Follow up: Response: No adverse reaction; Pain is decreased; RASS: Alert and Calm (0) ha1 00:54 Drug: Ibuprofen PO 800 mg PO once Route: PO; ha1 01:20 Follow up: Response: No adverse reaction; Pain is decreased ha1 00:54 Drug: MetoCLOPramide PO 10 mg PO once Route: PO; ha1 01:30 Follow up: Response: No adverse reaction ha1 03:10 Drug: Cephalexin PO 500 mg PO once Route: PO; ha1 03:30 Follow up: Response: No adverse reaction ha1 Disposition Summary: 01/20/23 02:45 Discharge Ordered Problem: new sp4 Symptoms: have improved sp4 Condition: Stable sp4 Diagnosis - Acute suppurative otitis media without spontaneous rupture of ear drum, left ear sp4 Followup: sp4 - With: Maricruz Duff MD - When: 7 - 10 days - Reason: Recheck today's complaints Discharge Instructions: - Discharge Summary Sheet sp4 - Otitis Media, Adult, [id number] sp4 Forms: - Patient Portal Instructions sp4 Prescriptions: - Cephalexin 500 mg Oral Capsule - take 1 capsule ORAL route every 8 hours for 10 days; 30 capsule; Refills: 0, sp4 Product Selection Permitted - Ibuprofen 800 mg Oral Tablet - take 1 tablet ORAL route every 8 hours As needed take with food; 30 tablet; sp4 Refills: 0, Product Selection Permitted - Tramadol 50 mg Oral tablet - take 1 tablet ORAL route every 8 hours as needed; 20 tablet; Refills: 0, sp4 Product Selection Permitted Signatures: Dispatcher [employer] Sebastian Maher RN RN bp Ayala, Heidy, RN RN ha1 Villegas, Rebecca rv1 Potepalov, Sergey, MD MD sp4
--- NOTE | 2023-01-20 02:46 | ER ---
Nurse's Notes [facility] Name: Bernarda Finn Age: 23 yrs Sex: Male : 2000 Arrival Date: 01/20/2023 Time: 00:07 Bed 7 Private MD: Diagnosis: Acute suppurative otitis media without spontaneous rupture of ear drum, left ear Presentation: 01/20 00:23 Chief complaint: Patient states: LEFT EAR AND LEFT MANDIBLE PAIN x2 MONTHS. Coronavirus bp screen: At this time, the client does not indicate any symptoms associated with coronavirus-19. Ebola Screen: No symptoms or risks identified at this time. Initial Sepsis Screen: Does the patient meet any 2 criteria? No. Patient's initial sepsis screen is negative. Does the patient have a suspected source of infection? No. Patient's initial sepsis screen is negative. Risk Assessment: Do you want to hurt yourself or someone else? Patient reports no desire to harm self or others. Onset of symptoms is unknown. 00:23 Method Of Arrival: Ambulatory bp 00:23 Acuity: ROCK 3 bp Triage Assessment: 00:23 General: Appears in no apparent distress. Behavior is calm, cooperative, appropriate bp for age. Pain: Complains of pain in face. Historical: - Allergies: 00:25 No Known Allergies; bp - Home Meds: 00:25 None [Active]; bp - PMHx: 00:25 None; bp - Immunization history:: Adult Immunizations up to date. - Social history:: Smoking status: Patient denies any tobacco usage or history of. - Family history:: not pertinent. Screenin:30 [facility] ED Fall Risk Assessment (Adult) History of falling in the last 3 months, ha1 including since admission No falls in past 3 months (0 pts) Confusion or Disorientation No (0 pts) Intoxicated or Sedated No (0 pts) Impaired Gait No (0 pts) Mobility Assist Device Used No (0 pt) Altered Elimination No (0 pt) Score/Fall Risk Level 0 - 2 = Low Risk Oriented to surroundings, Maintained a safe environment, Educated pt \T\ family on fall prevention, incl call for assistance when getting out of bed, Hourly rounding (assess needs \T\ fall precautionary measures) done. Abuse screen: Denies threats or abuse. Denies injuries from another. Nutritional screening: No deficits noted. Tuberculosis screening: No symptoms or risk factors identified. Assessment: 01:00 General: Appears comfortable, Behavior is calm, cooperative. Pain: Complains of pain in ha1 left ear Pain does not radiate. Pain currently is 7 out of 10 on a pain scale. Quality of pain is described as throbbing. Neuro: Level of Consciousness is awake, alert, obeys commands, Oriented to person, place, time. Cardiovascular: Patient's skin is warm and dry. EENT: Ear canal redness. 02:00 Reassessment: Patient and/or family updated on plan of care and expected duration. Pain ha1 level reassessed. Patient is alert, oriented x 3, equal unlabored respirations, skin warm/dry/pink. 03:00 Reassessment: Patient and/or family updated on plan of care and expected duration. Pain ha1 level reassessed. Patient is alert, oriented x 3, equal unlabored respirations, skin warm/dry/pink. Vital Signs: 00:23 BP 166 / 100; Pulse 78; Resp 18; Temp 97.8; Pulse Ox 97% ; Weight 95.25 kg; Height 6 bp ft. 0 in. ; 01:51 BP 150 / 94; Pulse 77; Resp 18 S; Pulse Ox 99% on R/A; as6 03:00 BP 137 / 79; Pulse 70; Resp 18 S; Pulse Ox 99% on R/A; ha1 00:23 Body Mass Index 28.48 (95.25 kg, 182.88 cm) bp ED Course: 00:10 Patient arrived in ED. jj6 00:11 Mac Amanda MD is Attending Physician. sp4 00:25 Triage completed. bp 00:26 Arm band placed on. bp 00:30 Patient has correct armband on for positive identification. Bed in low position. Call ha1 light in reach. Side rails up X 1. 00:30 Inserted saline lock: 20 gauge in right antecubital area, using aseptic technique. ha1 Blood collected. 00:33 Filemon Tesfaye, RN is Primary Nurse. as6 00:55 Basic Metabolic Panel Sent. ha1 00:55 CBC with Diff Sent. ha1 01:35 Radiology exam delayed due to lab results not completed at this time. (BUN/Creatinine). eh4 02:10 CT Facial Bones W/ Con \T\ Mpr In Process Unspecified. EDMS 02:11 CT Head Brain wo Cont In Process Unspecified. EDMS 02:45 Maricruz Duff MD is Referral Physician. sp4 03:30 Provided Education on: medication administration . ha1 03:30 No provider procedures requiring assistance completed. ha1 03:30 IV discontinued, intact, bleeding controlled, No redness/swelling at site. Pressure ha1 dressing applied. Administered Medications: 00:54 Drug: Acetaminophen-Codeine PO (300 mg-30 mg) 2 tabs PO once; RASS on ADMIN: Combtv4, ha1 Very Agttd3, Agttd2, Rstlss1, AlertClm0, Drwsy-1, Lt Sdtn-2, Mod Sdtn-3, Dp Sdtn-4, UnArsble-5 Route: PO; 01:20 Follow up: Response: No adverse reaction; Pain is decreased; RASS: Alert and Calm (0) ha1 00:54 Drug: Ibuprofen PO 800 mg PO once Route: PO; ha1 01:20 Follow up: Response: No adverse reaction; Pain is decreased ha1 00:54 Drug: MetoCLOPramide PO 10 mg PO once Route: PO; ha1 01:30 Follow up: Response: No adverse reaction ha1 03:10 Drug: Cephalexin PO 500 mg PO once Route: PO; ha1 03:30 Follow up: Response: No adverse reaction ha1 Medication: 03:34 VIS not applicable for this client. ha1 Outcome: 02:45 Discharge ordered by . sp4 03:30 Discharged to home ambulatory, ha1 03:30 Condition: stable 03:30 Discharge instructions given to patient, Instructed on discharge instructions, follow up and referral plans. medication usage, Demonstrated understanding of instructions, follow-up care, medications, Prescriptions given X 3, 03:31 Patient left the ED. ha1 Signatures: Dispatcher [employer] EDSebastian Sarkar RN RN Danae Yarbrough Ashby, RN RN as6 Mariam Banks RN RN ha1 Stevo Hernandes [facility] Mac Amanda MD MD sp4 Corrections: (The following items were deleted from the chart) 00:25 00:23 Acuity: ROCK 5 bp bp
[2023-01-20] MEDS ORDERED: CEPHALEXIN 250 MG CAP ONE (03:29)
[2023-01-20 04:01] VITALS: TEMP 97.8
[2023-01-20 04:02] VITALS: BP 150/94; O2SAT 99
--- NOTE | 2023-01-20 20:54 | RAD REPORT ---
EXAM DESCRIPTION: CT - Head Brain Wo Cont - 01/20/2023 5:51 am CLINICAL HISTORY: The patient is 23 years old and is Male; left sided headache TECHNIQUE: Axial computed tomography images of the head/brain without intravenous contrast. Sagitt al and coronal reformatted images were created and reviewed. This CT exam was performed using one o r more of the following dose reduction techniques: automated exposure control, adjustment of the mA and/or kV according to patient size, and/or use of iterative reconstruction technique. COMPARISON: No relevant prior studies available. FINDINGS: BRAIN: Unremarkable. The jennings-white matter differentiation is preserved . No hemorrhag e. No significant white matter disease. No edema. No extra-axial fluid collections. VENTRICLES: Unremarkable. No ventriculomegaly. BONES/JOINTS: No acute fracture. SOFT TISSUES: Unremarkable. SINUSES: Unremarkable as visualized. No acute sinusitis. MASTOID AIR CELLS: Unremarkable as visualized. No mastoid effusion. ORBITS: Unremarkable as visualized. IMPRESSION: No acute intracranial findings. Electronically signed by: Giana Metz MD 01/20/2023 02:23 AM HEAD COOK Due to temporary technical issues with the PACS/Fluency reporting system, reports are being signed by the in house radiologists without review as a courtesy to insure prompt reporting. The interpreting radiologist is fully responsible for the content of the report.
--- NOTE | 2023-01-20 20:56 | RAD REPORT ---
EXAM DESCRIPTION: CT - Facial Bones W Con Mpr - 01/20/2023 5:51 am CLINICAL HISTORY: The patient is 23 years old and is Male; left facial pain TECHNIQUE: Axial computed tomography images of the face with intravenous contrast. Sagittal and co cheryle reformatted images were created and reviewed. This CT exam was performed using one or more of the following dose reduction techniques: automated exposure control, adjustment of the mA and/or k V according to patient size, and/or use of iterative reconstruction technique. COMPARISON: No relevant prior studies available. FINDINGS: BONES/JOINTS: The orbital floors and thomson are intact. The zygomatic arches and pteryg oid plates are intact. There is no acute fracture. The maxilla and mandible are intact. SOFT TISSUES: Unremarkable. ORBITS: The globes, extraocular muscles, and optic nerve complexes are within normal limits. SINUSES: The paranasal sinuses are clear. No air-fluid levels. NASAL CAVITY/SEPTUM: The nasal bones are intact. IMPRESSION: No acute findings on this contrasted CT of the face to explain the patient's symptoms. Electronically signed by: Giana Metz MD 01/20/2023 02:22 AM ROCK CUTTER Due to temporary technical issues with the PACS/Fluency reporting system, reports are being signed by the in house radiologists without review as a courtesy to insure prompt reporting. The interpreting radiologist is fully responsible for the content of the report.
== END 2023-01-20 03:31 | disposition home or self-care (01) ==
LOC: ER 00:07
DX: H66.002 Acute suppurative otitis media without spontaneous rupture of ear drum, left ear (principal)
CPT/HCPCS: 36415; 70450; 70487; 76377; 80048; 82565; 85025; 99284; Q9967